=== PATIENT | female | born 1935 | race Caucasian/White ===

== ENCOUNTER → 2017-10-04 | Outpatient (CLI) | payer MEDICARE, OTHER ==
--- NOTE | 2017-10-04 13:42 | CT ---
EXAMINATION TYPE: CT brain wo con DATE OF EXAM: 10/04/2017 COMPARISON: NONE INDICATION: Subdural hematoma, abnormal gait DLP: 1046 mGycm, Automated exposure control for dose reduction was used. CONTRAST: None CT of the brain is performed utilizing 3 mm thick sections through the posterior fossa and 3 mm thick sections through the remaining calvarium. Study is performed within 24 hours of arrival to the hosp ital. No abnormal hyperdensity is present to suggest an acute intracranial hemorrhage. No mass lesion is evident. No acute infarcts are evident. There are patchy areas of hypodensity in the periventricular white mat ter. Findings can be compatible with chronic appearing white matter ischemic type changes. Ventricles and sulci are prominent for the patient age. There is a retention cyst within the left maxillary sinus. Remaining paranasal sinuses and mastoid ai r cells are clear. IMPRESSIONS: 1. Atrophy with patchy periventricular white matter ischemic type changes.
== END | disposition home or self-care (01) ==
LOC: RADCTMAIN 12:30
PROVIDERS: ATTEND Internal Medicine Critical Care Medicine
DX: G31.9 Degenerative disease of nervous system, unspecified (principal); I67.82 Cerebral ischemia; R90.89 Other abnormal findings on diagnostic imaging of central nervous system
CPT/HCPCS: 70450; 99214

== ENCOUNTER 2018-10-02 10:49 | Emergency (ER) | payer MEDICARE, OTHER ==
[2018-10-02 10:59] VITALS: TEMP 96.9
[2018-10-02] MEDS ORDERED: SODIUM CHLORIDE 0.9% 500 ML 500 ML IV STA (11:21)
--- NOTE | 2018-10-02 11:44 | ED ---
General Adult HPI - General Chief complaint: Syncope Stated complaint: Syncope Time Seen by Provider: 10/02/18 11:09 Source: patient, family, EMS, RN notes reviewed, old records reviewed Mode of arrival: EMS Limitations: no limitations - History of Present Illness Initial comments: 82 yo-year-old female presenting with an episode of unresponsiveness. No seizure-like activity.. At the time my evaluation patient has no complaints, denies headache, denies nausea vomiting or diarrhea, denies fever, denies chest pain. Denies focal weakness or numbness. She states she feels normal. Her daughter who was present at the time of this episode states she was standing at the kitchen counter, became unresponsive and began to collapse. She did not fall, there was no injury reported. Patient's symptoms improved with sitting in the chair. By time EMS arrived she was responsive and talking. Stable vital signs during transport by EMS. Patient's states she had episodes similar to this in the past. - Related Data Home Medications Medication Instructions Recorded Confirmed Donepezil [Aricept] 10 mg PO HS 06/20/14 10/02/18 Hydrochlorothiazide [Hydrodiuril] 25 mg PO DAILY 06/20/14 10/02/18 Levothyroxine Sodium [Synthroid] 125 mcg PO DAILY 06/20/14 10/02/18 Lisinopril [Prinivil] 10 mg PO DAILY 06/20/14 10/02/18 Warfarin [Coumadin] 2.5 mg PO MOTUWETHFRSA 06/20/14 10/02/18 Warfarin [Coumadin] 5 mg PO RAMIREZ 06/20/14 10/02/18 Diltiazem HCl [Diltiazem ER] 240 mg PO DAILY 09/30/17 10/02/18 Fluticasone/Vilanterol [Breo 1 inhalation PO RT-DAILY 09/30/17 10/02/18 Ellipta 100-25 Mcg Inhaler] Multivitamins, Thera [Multivitamin 1 tab PO DAILY 09/30/17 10/02/18 (formulary)] Simvastatin [Zocor] 40 mg PO HS 09/30/17 10/02/18 Memantine [Namenda] 10 mg PO BID 10/02/18 10/02/18 Allergies Allergy/AdvReac Type Severity Reaction Status Date / Time atropine sulfate Allergy Rash/Hives Verified 10/02/18 11:37 [From Lomotil] diphenoxylate HCl Allergy Rash/Hives Verified 10/02/18 11:37 [From Lomotil] hydroxychloroquine sulfate Allergy Rash/Hives Verified 10/02/18 11:37 [From Plaquenil] Review of Systems ROS Statement: Those systems with pertinent positive or pertinent negative responses have been documented in the HPI. ROS Other: All systems not noted in ROS Statement are negative. Past Medical History Past Medical History: Asthma, Cancer, GERD/Reflux, Hypertension, Thyroid Disorder History of Any Multi-Drug Resistant Organisms: None Reported Past Surgical History: Breast Surgery Additional Past Surgical History / Comment(s): Breast CA,hemorrhoid surgery Past Anesthesia/Blood Transfusion Reactions: No Reported Reaction Smoking Status: Former smoker Past Alcohol Use History: None Reported Past Drug Use History: None Reported General Exam Limitations: no limitations General appearance: alert, in no apparent distress Head exam: Present: atraumatic, normocephalic Eye exam: Present: PERRL, EOMI, other (Left ptosis) Neck exam: Present: normal inspection. Absent: tenderness, meningismus Respiratory exam: Present: normal lung sounds bilaterally. Absent: respiratory distress, wheezes Cardiovascular Exam: Present: regular rate, normal rhythm Extremities exam: Present: normal inspection, normal capillary refill. Absent: pedal edema Neurological exam: Present: alert, oriented X3, CN II-XII intact. Absent: motor sensory deficit Psychiatric exam: Present: normal affect, normal mood Skin exam: Present: warm, dry, intact. Absent: cyanosis, diaphoretic Course Vital Signs 10/02/18 10:56 Temperature 96.9 F L Pulse Rate 76 Respiratory 16 Rate Blood Pressure 109/60 O2 Sat by Pulse 99 Oximetry EKG Findings - EKG Comments: EKG Findings:: EKG: Sinus rhythm with first-degree A-V block, rate is 70, LA interval 2:30, QRS duration 72, QTC 427, no ST segment changes. Medical Decision Making - Medical Decision Making 82-year-old female presenting with syncopal episode. Patient has had episodes similar to this in the past. Patient has no complaints time my evaluation. Patient has normal CBC, normal CMP with the exception of elevated glucose 224, troponin negative. Head CT is obtained, this is negative for intracranial hemorrhage or mass effect. Chest x-ray negative for focal pneumonia or acute findings. Urinalysis does reveal 3+ glucose, patient has no known diagnosis of diabetes. I would prefer the patient be admitted for telemetry and close observation. Patient is eager for discharge. She will follow-up closely with her primary care physician. Return with worsening or changing symptoms. Please continue oral hydration at home. She is given basic instructions on diabetic diet. - Lab Data Result diagrams: 10/02/18 11:45 10/02/18 11:45 Lab Results 10/02/18 10/02/18 10/02/18 Range/Units 11:45 11:45 11:45 WBC 7.8 (3.8-10.6) k/uL RBC 4.39 (3.80-5.40) m/uL Hgb 14.2 (11.4-16.0) gm/dL Hct 42.5 (34.0-46.0) % MCV 96.8 (80.0-100.0) fL MCH 32.5 (25.0-35.0) pg MCHC 33.5 (31.0-37.0) g/dL RDW 13.3 (11.5-15.5) % Plt Count 226 (150-450) k/uL Neutrophils % 73 % Lymphocytes % 19 % Monocytes % 5 % Eosinophils % 2 % Basophils % 1 % Neutrophils # 5.6 (1.3-7.7) k/uL Lymphocytes # 1.5 (1.0-4.8) k/uL Monocytes # 0.4 (0-1.0) k/uL Eosinophils # 0.1 (0-0.7) k/uL Basophils # 0.1 (0-0.2) k/uL PT (9.0-12.0) sec INR (<1.2) APTT (22.0-30.0) sec Sodium 138 (137-145) mmol/L Potassium 4.5 (3.5-5.1) mmol/L Chloride 103 (98-107) mmol/L Carbon Dioxide 20 L (22-30) mmol/L Anion Gap 15 mmol/L BUN 18 H (7-17) mg/dL Creatinine 0.95 (0.52-1.04) mg/dL Est GFR (CKD-EPI)AfAm 65 (>60 ml/min/1.73 sqM) Est GFR (CKD-EPI)NonAf 56 (>60 ml/min/1.73 sqM) Glucose 224 H (74-99) mg/dL Calcium 9.9 (8.4-10.2) mg/dL Total Bilirubin 0.5 (0.2-1.3) mg/dL AST 38 H (14-36) U/L ALT 42 (9-52) U/L Alkaline Phosphatase 94 (38-126) U/L Total Creatine Kinase 52 (30-135) U/L CK-MB (CK-2) 0.4 (0.0-2.4) ng/mL CK-MB (CK-2) Rel Index 0.8 Troponin I <0.012 (0.000-0.034) ng/mL Total Protein 7.0 (6.3-8.2) g/dL Albumin 4.3 (3.5-5.0) g/dL Urine Color Urine Appearance (Clear) Urine pH (5.0-8.0) Ur Specific Warriors Mark (1.001-1.035) Urine Protein (Negative) Urine Glucose (UA) (Negative) Urine Ketones (Negative) Urine Blood (Negative) Urine Nitrite (Negative) Urine Bilirubin (Negative) Urine Urobilinogen (<2.0) mg/dL Ur Leukocyte Esterase (Negative) 10/02/18 10/02/18 Range/Units 11:45 14:21 WBC (3.8-10.6) k/uL RBC (3.80-5.40) m/uL Hgb (11.4-16.0) gm/dL Hct (34.0-46.0) % MCV (80.0-100.0) fL MCH (25.0-35.0) pg MCHC (31.0-37.0) g/dL RDW (11.5-15.5) % Plt Count (150-450) k/uL Neutrophils % % Lymphocytes % % Monocytes % % Eosinophils % % Basophils % % Neutrophils # (1.3-7.7) k/uL Lymphocytes # (1.0-4.8) k/uL Monocytes # (0-1.0) k/uL Eosinophils # (0-0.7) k/uL Basophils # (0-0.2) k/uL PT 21.1 H (9.0-12.0) sec INR 2.2 H (<1.2) APTT 28.9 (22.0-30.0) sec Sodium (137-145) mmol/L Potassium (3.5-5.1) mmol/L Chloride (98-107) mmol/L Carbon Dioxide (22-30) mmol/L Anion Gap mmol/L BUN (7-17) mg/dL Creatinine (0.52-1.04) mg/dL Est GFR (CKD-EPI)AfAm (>60 ml/min/1.73 sqM) Est GFR (CKD-EPI)NonAf (>60 ml/min/1.73 sqM) Glucose (74-99) mg/dL Calcium (8.4-10.2) mg/dL Total Bilirubin (0.2-1.3) mg/dL AST (14-36) U/L ALT (9-52) U/L Alkaline Phosphatase (38-126) U/L Total Creatine Kinase (30-135) U/L CK-MB (CK-2) (0.0-2.4) ng/mL CK-MB (CK-2) Rel Index Troponin I (0.000-0.034) ng/mL Total Protein (6.3-8.2) g/dL Albumin (3.5-5.0) g/dL Urine Color Yellow Urine Appearance Clear (Clear) Urine pH 7.0 (5.0-8.0) Ur Specific Warriors Mark 1.015 (1.001-1.035) Urine Protein Negative (Negative) Urine Glucose (UA) 3+ H (Negative) Urine Ketones Negative (Negative) Urine Blood Negative (Negative) Urine Nitrite Negative (Negative) Urine Bilirubin Negative (Negative) Urine Urobilinogen <2.0 (<2.0) mg/dL Ur Leukocyte Esterase Negative (Negative) Disposition Clinical Impression: Syncope, Diabetes mellitus Disposition: HOME SELF-CARE Condition: Good Instructions: Type 2 Diabetes in Adults: New Diagnosis (DC), Syncope (ED) Is patient prescribed a controlled substance at d/c from ED?: No Referrals: None,Stated [REFERRING] - 1-2 days Marcellus Joel DO [Primary Care Provider] - 1-2 days Time of Disposition: 14:56
[2018-10-02 12:01] LABS: Basophils # (A) 0.1 k/uL (0-0.2); Basophils % (A) 1 %; Eosinophils # (A) 0.1 k/uL (0-0.7); Eosinophils % (A) 2 %; HCT 42.5 % (34.0-46.0); HGB 14.2 gm/dL (11.4-16.0); Lymphocytes # (A) 1.5 k/uL (1.0-4.8); Lymphocytes % (A) 19 %; MCH 32.5 pg (25.0-35.0); MCHC 33.5 g/dL (31.0-37.0); MCV 96.8 fL (80.0-100.0); Monocytes # (A) 0.4 k/uL (0-1.0); Monocytes % (A) 5 %; Neutrophils # (A) 5.6 k/uL (1.3-7.7); Neutrophils % (A) 73 %; Platelet Count 226 k/uL (150-450); RBC 4.39 m/uL (3.80-5.40); RDW 13.3 % (11.5-15.5); WBC 7.8 k/uL (3.8-10.6)
[2018-10-02 12:11] LABS: INR 2.2 (<1.2); Partial Thromboplastin Time 28.9 sec (22.0-30.0); Prothrombin Time 21.1 sec (9.0-12.0)
[2018-10-02 12:20] LABS: Creatine Kinase 52 U/L (30-135)
--- NOTE | 2018-10-02 12:26 | CT ---
EXAMINATION TYPE: CT brain wo con DATE OF EXAM: 10/02/2018 COMPARISON: 10/04/2017 HISTORY: 82-year-old female with syncope TECHNIQUE: Examination was done in axial plane without intravenous contrast. Coronal and sagittal r econstructions performed. CT DLP: 1134.4 mGycm Automated exposure control for dose reduction was used. FINDINGS: There is no evidence of acute intracranial hemorrhage, acute ischemic changes, mass, mass-effect, or extra-axial fluid collection. There is no effacement of cerebral sulci or basal subarachnoid cister ns. There is no hydrocephalus. There is no midline shift. Weeks-white matter distinction is preserv ed. Moderate frontotemporal atrophy is redemonstrated with moderate confluent white matter hypodensities in both cerebral hemispheres. Atherosclerotic calcifications within the bilateral carotid siphons. Visualized paranasal sinuses and mastoid air cells appear clear. Orbits and globes are intact. IMPRESSION: Similar moderate frontotemporal cortical atrophy and moderate confluent changes of chronic small vess el ischemic disease. No acute intracranial abnormality seen.
[2018-10-02 12:33] LABS: Creatine Kinase MB 0.4 ng/mL (0.0-2.4); Troponin I <0.012 ng/mL (0.000-0.034)
[2018-10-02 12:44] LABS: Albumin 4.3 g/dL (3.5-5.0); Calcium 9.9 mg/dL (8.4-10.2); Potassium 4.5 mmol/L (3.5-5.1); Total Bilirubin 0.5 mg/dL (0.2-1.3)
--- NOTE | 2018-10-02 13:03 | XR ---
EXAMINATION TYPE: XR chest 2V DATE OF EXAM: 10/02/2018 COMPARISON: Chest x-ray September 30, 2017 HISTORY: History of asthma and hypertension with syncope and weakness today. TECHNIQUE: Frontal and lateral views of the chest are obtained. FINDINGS: There is chronic white matter change without suspicious focal air space opacity, pleural e ffusion, or pneumothorax seen. The cardiac silhouette size is stable and within normal limits with a therosclerotic change in aortic knob. The osseous structures remain demineralized. Surgical changes to left breast from lumpectomy and left axillary dissection with diminished size of left breast rela tive to the right breast are all redemonstrated. IMPRESSION: Chronic changes without acute pulmonary process.
[2018-10-02] MEDS ORDERED: SODIUM CHLORIDE 0.9% 500 ML 500 ML IV ONE (14:14)
[2018-10-02 14:36] LABS: Appearance,Urine Clear (Clear); Bilirubin,Urine Negative (Negative); Blood,Urine Negative (Negative); Color,Urine Yellow; Glucose,Urine (UA) 3+ (Negative); Ketones,Urine Negative (Negative); Leukocyte Esterase,Urine Negative (Negative); Nitrite,Urine Negative (Negative); Protein,Urine Negative (Negative); Specific Gravity,Urine 1.015 (1.001-1.035); Urobilinogen,Urine <2.0 mg/dL (<2.0)
[2018-10-02 15:19] VITALS: BP 117/61; PULSE 68; RESP 18
== END 2018-10-02 15:16 | disposition home or self-care (01) ==
LOC: EC 10:49
DX: E11.65 Type 2 diabetes mellitus with hyperglycemia (principal); R55 Syncope and collapse; J45.909 Unspecified asthma, uncomplicated; I10 Essential (primary) hypertension; E07.9 Disorder of thyroid, unspecified; Z87.891 Personal history of nicotine dependence; Z85.3 Personal history of malignant neoplasm of breast; Z79.01 Long term (current) use of anticoagulants; Z79.51 Long term (current) use of inhaled steroids; Z79.899 Other long term (current) drug therapy; Z88.8 Allergy status to other drugs, medicaments and biological substances; Z53.8 Procedure and treatment not carried out for other reasons
CPT/HCPCS: 36415; 70450; 71046; 80053; 81003; 82550; 82553; 84484; 85025; 85610; 85730; 93005; 96360; 99285

== ENCOUNTER → 2018-10-05 | Outpatient (CLI) | payer MEDICARE, OTHER ==
[2018-10-05 17:24] LABS: Hemoglobin A1C 6.9 % (4.0-6.0)
== END | disposition home or self-care (01) ==
LOC: LABWHC1 08:33
PROVIDERS: ATTEND Nurse Practitioner Adult Health
DX: R73.9 Hyperglycemia, unspecified (principal)
CPT/HCPCS: 36415; 82947; 83036

== ENCOUNTER 2019-02-10 09:40 | Emergency (ER) | payer MEDICARE, OTHER ==
[2019-02-10 09:58] VITALS: PULSE 78
--- NOTE | 2019-02-10 10:13 | ED ---
Abdominal Pain HPI - General Chief Complaint: Abdominal Pain Stated Complaint: Constipated Time Seen by Provider: 02/10/19 10:00 Source: patient, family, RN notes reviewed, old records reviewed Mode of arrival: ambulatory Limitations: altered mental status - History of Present Illness Initial Comments: Patient is an 83-year-old female who presents emergency department today with complaints of constipation. Patient had rectal prolapse surgery by Dr. Tristin Rivera at [facility] on January 18. She has not had a bowel movement in 16 days. Visiting nurse came to the house yesterday and administered Fleet enemas but there is a reported significant fecal impaction that was not able to be removed. Patient has had no vomiting. She reports that she is able to urinate without difficulty. She denies any falls. - Related Data Home Medications Medication Instructions Recorded Confirmed Donepezil [Aricept] 10 mg PO HS 06/20/14 10/02/18 Hydrochlorothiazide [Hydrodiuril] 25 mg PO DAILY 06/20/14 10/02/18 Levothyroxine Sodium [Synthroid] 125 mcg PO DAILY 06/20/14 10/02/18 Lisinopril [Prinivil] 10 mg PO DAILY 06/20/14 10/02/18 Warfarin [Coumadin] 2.5 mg PO MOTUWETHFRSA 06/20/14 10/02/18 Warfarin [Coumadin] 5 mg PO RAMIREZ 06/20/14 10/02/18 Diltiazem HCl [Diltiazem ER] 240 mg PO DAILY 09/30/17 10/02/18 Fluticasone/Vilanterol [Breo 1 inhalation PO RT-DAILY 09/30/17 10/02/18 Ellipta 100-25 Mcg Inhaler] Multivitamins, Thera [Multivitamin 1 tab PO DAILY 09/30/17 10/02/18 (formulary)] Simvastatin [Zocor] 40 mg PO HS 09/30/17 10/02/18 Memantine [Namenda] 10 mg PO BID 10/02/18 10/02/18 Allergies Allergy/AdvReac Type Severity Reaction Status Date / Time atropine sulfate Allergy Rash/Hives Verified 10/02/18 11:37 [From Lomotil] diphenoxylate HCl Allergy Rash/Hives Verified 10/02/18 11:37 [From Lomotil] hydroxychloroquine sulfate Allergy Rash/Hives Verified 10/02/18 11:37 [From Plaquenil] Review of Systems ROS Statement: Those systems with pertinent positive or pertinent negative responses have been documented in the HPI. ROS Other: All systems not noted in ROS Statement are negative. Past Medical History Past Medical History: Asthma, Cancer, GERD/Reflux, Hypertension, Thyroid Disorder History of Any Multi-Drug Resistant Organisms: None Reported Past Surgical History: Bowel Resection, Breast Surgery Additional Past Surgical History / Comment(s): Breast CA,hemorrhoid surgery Past Anesthesia/Blood Transfusion Reactions: No Reported Reaction Smoking Status: Former smoker Past Alcohol Use History: None Reported Past Drug Use History: None Reported General Exam - General Exam Comments Initial Comments: 83-year-old female. Alert and oriented 3. No significant distress. General: Well appearing, well nourished, in no distress. Oriented x 3, normal mood and affect . Ambulating without difficulty. Skin: Good turgor, no rash, unusual bruising or prominent lesions Hair: Normal texture and distribution. HEENT: Head: Normocephalic, atraumatic, no visible or palpable masses, depressions, or scaring. Eyes: Visual acuity intact, conjunctiva clear, sclera non-icteric, EOM intact, PERRL. Ears: EACs clear, TMs translucent & cone of light visualized. hearing intact. Nose: No external lesions, mucosa non-inflamed, septum and turbinates normal Mouth: Mucous membranes moist, no mucosal lesions. Teeth/Gums: No obvious caries or periodontal disease. No gingival inflammation or significant resorption. Pharynx: Mucosa non-inflamed, no tonsillar hypertrophy or exudate Neck: Supple, without lesions, bruits, or adenopathy, thyroid non-enlarged and non-tender Heart: No cardiomegaly or thrills; regular rate and rhythm, no murmur or gallop Lungs: Clear to auscultation and percussion Abdomen: Bowel sounds normal, distended. Back: Spine normal without deformity or tenderness, no CVA tenderness Rectal: Normal sphincter tone, small sphincter noted. Extremities: No amputations or deformities, cyanosis, edema or varicosities, peripheral pulses intact Musculoskeletal: Normal gait and station. No misalignment, asymmetry, crepitation, defects, tenderness, masses, effusions, decreased range of motion, instability, atrophy or abnormal strength or tone in the head, neck, spine, ribs, pelvis or extremities. Neurologic: CN 2-12 normal. Sensation to pain, touch, and proprioception normal. DTRs normal in upper and lower extremities. No pathologic reflexes. Psychiatric: Oriented X3, intact recent and remote memory, judgment and insight, normal mood and affect. Limitations: altered mental status Course Vital Signs 02/10/19 09:55 Temperature 98.2 F Pulse Rate 78 Respiratory 22 Rate Blood Pressure 122/60 O2 Sat by Pulse 98 Oximetry Medical Decision Making - Medical Decision Making Patient is an 83-year-old female who presents department 17 days after rectopexy surgery. Patient has not had a bowel movement time. KUB showed significant stool burn. She has a significant fecal impaction noted on rectal exam. She does have rectal tone. Patient was given lactulose, milk and molasses enema. She was able to produce a very large bowel movement. She feels much better afterwards. Patient advised to follow-up with her surgeon as well as continue to use MiraLAX daily. Discussed if she ever grows greater than 3 days without a bowel movement she would need to resort to magnesium citrate or other methods to promote bowel movements. Patient's family understands treatment plan will comply. Disposition Clinical Impression: Fecal impaction Disposition: HOME SELF-CARE Condition: Good Instructions (If sedation given, give patient instructions): Fecal Impaction (ED) Additional Instructions: Patient is a continued taking MiraLAX and stool softeners daily. Patient should have follow-up with her surgeon within the week. Return to the emergency department if any alarming signs or symptoms occur. Is patient prescribed a controlled substance at d/c from ED?: No Referrals: Marcellus Joel DO [Primary Care Provider] - 1-2 days Time of Disposition: 13:28
[2019-02-10] MEDS ORDERED: DOCUSATE 283 MG/5 ML ENEMA RECTAL PRN (10:14)
--- NOTE | 2019-02-10 10:28 | XR ---
EXAMINATION TYPE: XR KUB , 2 VIEWS DATE OF EXAM ORDERED: 02/10/2019 HISTORY: Pain. COMPARISON: None. FINDINGS: There has been previous left breast surgery. Lung bases are clear. The abdominal gas pattern is within normal limits. I do not see evidence of obstruction or free air. No unusual calcifications are seen. IMPRESSION: NO ACUTE INTRA-ABDOMINAL ABNORMALITY.
[2019-02-10] MEDS ORDERED: LACTULOSE 20 GM/30 ML CUP PO ONE (10:54)
[2019-02-10 14:01] VITALS: BP 142/87; RESP 18; TEMP 98.7
== END 2019-02-10 14:00 | disposition home or self-care (01) ==
LOC: EC 09:40
DX: K56.41 Fecal impaction (principal); R41.82 Altered mental status, unspecified; J45.909 Unspecified asthma, uncomplicated; I10 Essential (primary) hypertension; E07.9 Disorder of thyroid, unspecified; Z87.891 Personal history of nicotine dependence; Z88.8 Allergy status to other drugs, medicaments and biological substances; Z79.01 Long term (current) use of anticoagulants; Z79.51 Long term (current) use of inhaled steroids; Z79.890 Hormone replacement therapy; Z79.899 Other long term (current) drug therapy; Z85.3 Personal history of malignant neoplasm of breast; Z98.890 Other specified postprocedural states; Z90.49 Acquired absence of other specified parts of digestive tract; Z83.79 Family history of other diseases of the digestive system
CPT/HCPCS: 74018; 99284

== ENCOUNTER → 2019-02-16 | Outpatient (CLI) | payer MEDICARE, OTHER ==
--- NOTE | 2019-02-16 16:17 | CT ---
EXAMINATION TYPE: CT brain w con DATE OF EXAM: 02/16/2019 COMPARISON: CT brain October 02, 2018 HISTORY: hx dementia CT DLP: 1305 mGycm Automated exposure control for dose reduction was used. CONTRAST: CT scan of the head is performed with IV Contrast, patient injected with 80 mL of Isovue 300. FINDINGS: There is no abnormal enhancing mass or midline shift identified. Ventricle and sulcal prominence is r edemonstrated. Marked low attenuation in deep and periventricular white matter is again seen. Depende nt fluid left maxillary sinus is now present. Remainder paranasal sinuses are clear. The globes are i ntact bilaterally. IMPRESSION: Persistent moderate diffuse cerebral atrophy and moderate to severe chronic small vessel ischemic change. No suspicious enhancement is noted. New acute left maxillary sinus disease is presen t, correlate clinically.
== END | disposition home or self-care (01) ==
LOC: RADCTMAIN 13:56
PROVIDERS: ATTEND Internal Medicine Critical Care Medicine
DX: G31.9 Degenerative disease of nervous system, unspecified (principal); I67.82 Cerebral ischemia; F02.80 Dementia in other diseases classified elsewhere, unspecified severity, without behavioral disturbance, psychotic disturbance, mood disturbance, and anxiety
CPT/HCPCS: 82565; 84520; 70460; 36415; Q9967

== ENCOUNTER 2019-05-10 09:51 | Emergency (ER) | payer MEDICARE, OTHER ==
[2019-05-10 10:01] VITALS: RESP 18
[2019-05-10] MEDS ORDERED: ASPIRIN 81 MG PO STA (10:19)
--- NOTE | 2019-05-10 10:22 | ED ---
General Adult HPI - General Chief complaint: Neuro Symptoms/Deficit Stated complaint: Poss stroke Time Seen by Provider: 05/10/19 09:53 Source: patient Mode of arrival: ambulatory Limitations: no limitations - History of Present Illness Initial comments: Dictation was produced using [employer] dictation software. please excuse any grammatical, word or spelling errors. Chief Complaint: 83-year-old female presents with transient episode of right facial droop. History of Present Illness: Patient is 83-year-old female past medical history of dementia, hypertension thyroid disease and CVAs in the past. She presents today with transient episode of right facial droop. Patient was evaluated this morning by one of her family members. They noted that she was not moving her right lower face. The report that she also had some swelling to her right cheek. She went on to have several minutes of right facial droop with drooling. EMS was called family was concerned that patient was having another stroke. Patient has a history of CVAs and TIAs. Patient is unreliable historian at this time due to chronic dementia. Family reports the patient is behaving at baseline currently. Reports that she feels fine. The ROS documented in this emergency department record has been reviewed and confirmed by me. Those systems with pertinent positive or negative responses have been documented in the HPI. All other systems are other negative and/or noncontributory. PHYSICAL EXAM: General Impression: Alert and oriented x2/4, not in acute distress HEENT: Normocephalic atraumatic, extra-ocular movements intact, pupils equal and reactive to light bilaterally, mucous membranes moist. Cardiovascular: Heart regular rate and rhythm, S1&S2 audible, no murmurs, rubs or gallops Chest: Lungs clear to auscultation bilaterally, no rhonchi, no wheeze, no rales Abdomen: Bowel sounds present, abdomen soft, non-tender, non-distended, no organomegaly Musculoskeletal: Pulses present and equal in all extremities, no peripheral edema Motor: no focal deficits noted Neurological: CN II-XII grossly intact, no focal motor or sensory deficits noted Skin: Intact with no visualized rashes Psych: Normal affect and mood ED course: She is a 83-year-old female she presents today with transient episode of right facial droop. Clinical presentation is suspicious for transient ischemic attack. No significant neurologic deficits noted at this time. Patient is a delta NIH of 0. On arrival are within acceptable limits. Laboratory evaluation obtained. CBC, coag panel, metabolic panel is unremarkable. Cardiac enzymes negative. CT of the brain and CT angios found to be nonacute. Chest x-ray is unremarkable. Patient reevaluated at bedside after several hours of ER observation. She does not have any neuro deficits noted. Family is convinced that she does have some swelling to the face however she is not having any facial weakness. Patient has good neuro function to her extremities. Clinical presentation consistent with transient ischemic attack. Recommended to patient and family to have patient admitted for TIA workup. After long discussion with family and patient they requested the patient be discharged. They understand that this is against my recommendation. They are however willing to follow up with primary care physician. Return parameters discussed further told to bring patient back should she experience any new or recurrent neurologic symptoms. They understand that she should come back to the emergency Department immediately that she may qualify for thrombolytic therapy. Patient is given aspirin. They're told to follow-up with primary care physician tomorrow. He understands the risk of taking her home including recurrent of strokelike symptoms and pertinent neurologic disability and possibly even mortality. Decision was made along with family with son being decision-maker. is essentially the next of kin is hospitalized at the moment and and decision was made by son. EKG interpretation: Ventricular rate 64, normal sinus rhythm,. Interval 196, QS 70, QTc 416. No [place] prolongation, no QTC prolongation, no ST or T-wave changes noted. EKG compared to 10/02/2018 showing no changes. Overall, this EKG is unremarkable - Related Data Home Medications Medication Instructions Recorded Confirmed Hydrochlorothiazide [Hydrodiuril] 25 mg PO DAILY 06/20/14 05/10/19 Lisinopril [Prinivil] 10 mg PO DAILY 06/20/14 05/10/19 Warfarin [Coumadin] 2.5 mg PO MOTUWETHFRSA 06/20/14 05/10/19 Warfarin [Coumadin] 5 mg PO RAMIREZ 06/20/14 05/10/19 Diltiazem HCl [Diltiazem ER] 240 mg PO DAILY 09/30/17 05/10/19 Fluticasone/Vilanterol [Breo 1 puff INHALATION RT-DAILY 09/30/17 05/10/19 Ellipta 100-25 Mcg Inhaler] Multivitamins, Thera [Multivitamin 1 tab PO DAILY 09/30/17 05/10/19 (formulary)] Simvastatin [Zocor] 40 mg PO HS 09/30/17 05/10/19 Calcium Polycarbophil [Fibercon] 625 mg PO DAILY 05/10/19 05/10/19 Levothyroxine Sodium [Synthroid] 150 mcg PO DAILY 05/10/19 05/10/19 Allergies Allergy/AdvReac Type Severity Reaction Status Date / Time atropine sulfate Allergy Rash/Hives Verified 05/10/19 10:21 [From Lomotil] diphenoxylate HCl Allergy Rash/Hives Verified 05/10/19 10:21 [From Lomotil] hydroxychloroquine sulfate Allergy Rash/Hives Verified 05/10/19 10:21 [From Plaquenil] Review of Systems ROS Statement: Those systems with pertinent positive or pertinent negative responses have been documented in the HPI. ROS Other: All systems not noted in ROS Statement are negative. Past Medical History Past Medical History: Asthma, Cancer, GERD/Reflux, Hypertension, Thyroid Disorder History of Any Multi-Drug Resistant Organisms: None Reported Past Surgical History: Bowel Resection, Breast Surgery Additional Past Surgical History / Comment(s): Breast CA,hemorrhoid surgery Past Anesthesia/Blood Transfusion Reactions: No Reported Reaction Smoking Status: Former smoker Past Alcohol Use History: None Reported Past Drug Use History: None Reported General Exam Limitations: no limitations Course Vital Signs 05/10/19 05/10/19 09:57 10:10 Temperature 97.9 F 97.9 F Pulse Rate 74 77 Respiratory 18 18 Rate Blood Pressure 146/67 148/60 O2 Sat by Pulse 100 99 Oximetry Medical Decision Making - Lab Data Result diagrams: 05/10/19 10:09 05/10/19 10:09 Lab Results 05/10/19 05/10/19 05/10/19 Range/Units 10:09 10:09 10:09 WBC 9.0 (3.8-10.6) k/uL RBC 4.32 (3.80-5.40) m/uL Hgb 13.6 (11.4-16.0) gm/dL Hct 41.2 (34.0-46.0) % MCV 95.3 (80.0-100.0) fL MCH 31.6 (25.0-35.0) pg MCHC 33.1 (31.0-37.0) g/dL RDW 13.1 (11.5-15.5) % Plt Count 229 (150-450) k/uL Neutrophils % 69 % Lymphocytes % 23 % Monocytes % 4 % Eosinophils % 2 % Basophils % 1 % Neutrophils # 6.3 (1.3-7.7) k/uL Lymphocytes # 2.1 (1.0-4.8) k/uL Monocytes # 0.4 (0-1.0) k/uL Eosinophils # 0.1 (0-0.7) k/uL Basophils # 0.1 (0-0.2) k/uL PT 15.8 H (9.0-12.0) sec INR 1.6 H (<1.2) APTT 29.0 (22.0-30.0) sec Sodium 140 (137-145) mmol/L Potassium 4.3 (3.5-5.1) mmol/L Chloride 106 (98-107) mmol/L Carbon Dioxide 26 (22-30) mmol/L Anion Gap 8 mmol/L BUN 19 H (7-17) mg/dL Creatinine 0.82 (0.52-1.04) mg/dL Est GFR (CKD-EPI)AfAm 77 (>60 ml/min/1.73 sqM) Est GFR (CKD-EPI)NonAf 66 (>60 ml/min/1.73 sqM) Glucose 119 H (74-99) mg/dL Calcium 9.6 (8.4-10.2) mg/dL Total Bilirubin 0.7 (0.2-1.3) mg/dL AST 23 (14-36) U/L ALT 21 (9-52) U/L Alkaline Phosphatase 95 (38-126) U/L Troponin I (0.000-0.034) ng/mL Total Protein 6.9 (6.3-8.2) g/dL Albumin 4.1 (3.5-5.0) g/dL 05/10/19 Range/Units 10:09 WBC (3.8-10.6) k/uL RBC (3.80-5.40) m/uL Hgb (11.4-16.0) gm/dL Hct (34.0-46.0) % MCV (80.0-100.0) fL MCH (25.0-35.0) pg MCHC (31.0-37.0) g/dL RDW (11.5-15.5) % Plt Count (150-450) k/uL Neutrophils % % Lymphocytes % % Monocytes % % Eosinophils % % Basophils % % Neutrophils # (1.3-7.7) k/uL Lymphocytes # (1.0-4.8) k/uL Monocytes # (0-1.0) k/uL Eosinophils # (0-0.7) k/uL Basophils # (0-0.2) k/uL PT (9.0-12.0) sec INR (<1.2) APTT (22.0-30.0) sec Sodium (137-145) mmol/L Potassium (3.5-5.1) mmol/L Chloride (98-107) mmol/L Carbon Dioxide (22-30) mmol/L Anion Gap mmol/L BUN (7-17) mg/dL Creatinine (0.52-1.04) mg/dL Est GFR (CKD-EPI)AfAm (>60 ml/min/1.73 sqM) Est GFR (CKD-EPI)NonAf (>60 ml/min/1.73 sqM) Glucose (74-99) mg/dL Calcium (8.4-10.2) mg/dL Total Bilirubin (0.2-1.3) mg/dL AST (14-36) U/L ALT (9-52) U/L Alkaline Phosphatase (38-126) U/L Troponin I <0.012 (0.000-0.034) ng/mL Total Protein (6.3-8.2) g/dL Albumin (3.5-5.0) g/dL Disposition Clinical Impression: Transient cerebral ischemia Disposition: HOME SELF-CARE Condition: Fair Instructions (If sedation given, give patient instructions): Transient Ischemic Attack (ED) Is patient prescribed a controlled substance at d/c from ED?: No Referrals: Marcellus Joel DO [Primary Care Provider] - 1-2 days Time of Disposition: 13:33
[2019-05-10 10:35] LABS: Basophils # (A) 0.1 k/uL (0-0.2); Basophils % (A) 1 %; Eosinophils # (A) 0.1 k/uL (0-0.7); Eosinophils % (A) 2 %; HCT 41.2 % (34.0-46.0); HGB 13.6 gm/dL (11.4-16.0); Lymphocytes # (A) 2.1 k/uL (1.0-4.8); Lymphocytes % (A) 23 %; MCH 31.6 pg (25.0-35.0); MCHC 33.1 g/dL (31.0-37.0); MCV 95.3 fL (80.0-100.0); Mean Platelet Volume 7.5; Monocytes # (A) 0.4 k/uL (0-1.0); Monocytes % (A) 4 %; Neutrophils # (A) 6.3 k/uL (1.3-7.7); Neutrophils % (A) 69 %; Platelet Count 229 k/uL (150-450); RBC 4.32 m/uL (3.80-5.40); RDW 13.1 % (11.5-15.5)
[2019-05-10 10:41] LABS: Albumin 4.1 g/dL (3.5-5.0); Calcium 9.6 mg/dL (8.4-10.2); Potassium 4.3 mmol/L (3.5-5.1); Total Bilirubin 0.7 mg/dL (0.2-1.3); Total Protein 6.9 g/dL (6.3-8.2)
[2019-05-10 10:45] LABS: INR 1.6 (<1.2); Prothrombin Time 15.8 sec (9.0-12.0)
--- NOTE | 2019-05-10 11:07 | CT ---
EXAMINATION TYPE: CT brain wo con for TPA DATE OF EXAM: 05/10/2019 HISTORY: Possible stroke. Acute onset neuro deficit of altered mental status and aphasia CT DLP: 1507.4 mGycm. Automated Exposure Control for Dose Reduction was Utilized. TECHNIQUE: CT scan of the head is performed without contrast. COMPARISON: CT brain February 16, 2019 and older CTs FINDINGS: There is no acute intracranial hemorrhage or midline shift identified. There is diffuse v entricular and sulcal prominence consistent with diffuse age-related cerebral atrophy. There is low- attenuation in the periventricular white matter consistent with chronic small vessel ischemic change. The globes are intact and the visualized sinuses are clear. IMPRESSION: No acute intracranial hemorrhage or midline shift. There is mild to moderate diffuse ag e-related cerebral atrophy and moderate to advanced chronic small vessel ischemic change redemonstrat ed.
--- NOTE | 2019-05-10 11:55 | CT ---
EXAMINATION TYPE: CT angio head neck DATE OF EXAM: 05/10/2019 HISTORY: Possible stroke. Acute onset no deficits with aphasia and altered mental status. COMPARISON: NONE CT DLP: 1507.4 mGycm. Automated Exposure Control for Dose Reduction was Utilized. TECHNIQUE: CTA scan of the head and neck are performed without and with IV Contrast, patient injecte d with 50 ml mL of Isovue 370, axial images are obtained, coronal and sagittal reformatted images are reviewed. Three-D reconstructed images are created on an independent workstation and reviewed. FINDINGS: Carotid/Vascular Structures: Mild plaque in the aortic arch. Normal three-vessel origin from December. oderate calcified plaque in the left subclavian artery. Right common carotid artery shows normal orig in from right brachiocephalic artery. There is mild calcified plaque at right carotid bulb extending into proximal internal and external carotid arteries. No significant plaque or stenosis is otherwise present in the right common or internal carotid arteries. Patent external carotid artery is seen with out significant stenosis. There is mild calcified plaque at origin of left common carotid artery with tortuous course of commo n carotid artery. There is mild/moderate calcified plaque left carotid bulb. Patent external carotid artery is seen without significant stenosis. There is no significant stenosis in the left common or i nternal carotid arteries. There is dominant right vertebral artery. Vertebral arteries are patent to basilar junction. There is hypoplastic left P1 segment with filling of P2 segment due to patent left posterior communicating ar rosas. There is hypoplastic right posterior communicating artery. No aneurysmal change in the posterio r circulation is evident. Images of the anterior circulation show patent anterior communicating artery image 26 series 505. The re is no significant focal stenosis or aneurysmal change seen. Other: There is prominent borderline pericarinal lymph node measuring 11 x 9 mm axial image 1. Scatte red prominent but subcentimeter lymph nodes throughout the neck are present bilaterally. There is mild disc space narrowing and spurring C6-C7 level. Thyroid gland is small in size. IMPRESSION: 1. No significant stenosis in common or internal carotid arteries bilaterally. 2. No aneurysmal change at level of the [place].
--- NOTE | 2019-05-10 12:58 | XR ---
EXAMINATION TYPE: XR chest 2V DATE OF EXAM: 05/10/2019 COMPARISON: Chest x-ray 10/02/2018 and chest x-ray 10/26/2018 HISTORY: Altered mental status TECHNIQUE: Frontal and lateral views of the chest are obtained. FINDINGS: There is no focal air space opacity, pleural effusion, or pneumothorax seen. The cardiac silhouette size is within normal limits. The osseous structures are remarkable for chronic wedge co mpression deformity the lower thoracic spine. Prominent lung volume suggests possible underlying COPD . Surgical yakelin are present in left axilla. There are overlying cardiac leads. Patient is rotated. Aorta is dense. Suspect coronary artery calcifications. IMPRESSION: No acute cardiopulmonary process.
[2019-05-10 13:51] VITALS: BP 128/51; PULSE 89; TEMP 98
== END 2019-05-10 13:49 | disposition home or self-care (01) ==
LOC: EC 09:51
DX: G45.9 Transient cerebral ischemic attack, unspecified (principal); R29.700 NIHSS score 0; J45.909 Unspecified asthma, uncomplicated; I10 Essential (primary) hypertension; E07.9 Disorder of thyroid, unspecified; Z79.890 Hormone replacement therapy; Z79.01 Long term (current) use of anticoagulants; Z79.51 Long term (current) use of inhaled steroids; Z79.899 Other long term (current) drug therapy; Z88.8 Allergy status to other drugs, medicaments and biological substances; Z87.891 Personal history of nicotine dependence; Z85.3 Personal history of malignant neoplasm of breast; Z86.73 Personal history of transient ischemic attack (TIA), and cerebral infarction without residual deficits
CPT/HCPCS: 99284; 36415; 93005; 80053; 84484; 85025; 85610; 85730; 71046; 70496; 70450; 70498; Q9967

== ENCOUNTER → 2019-07-04 | Outpatient (CLI) | payer MEDICARE, OTHER ==
--- NOTE | 2019-07-05 04:49 | MR ---
EXAMINATION TYPE: MR brain wo/w con DATE OF EXAM: 07/04/2019 COMPARISON: Correlation CT 05/10/2019 HISTORY: 83-year-old female Memory problems cognitive disease, seizure disorder TECHNIQUE: Multiplanar, multisequence images of the brain and brainstem were acquired before and aft er administration of 5.5 mL IV Gadavist. Diffusion weighted imaging is performed. FINDINGS: No evidence for acute infarction, hemorrhage, mass, mass effect, midline shift, herniation, effacemen t of basal cisterns, or extra-axial fluid collection. Moderate to severe generalized supratentorial volume loss with secondary mild prominence to the ventr icular system. Major intracranial flow voids are intact. See MRA of the same day. T2/FLAIR weighted sequences show moderate to severe patchy and confluent bright white matter change p articularly in the periventricular and deep white matter regions. Additional patchy increased signal within the bilateral paramedian james. Midline structures demonstrate normal morphology. The craniocervical junction is normal. Post contrast images demonstrate no evidence of pathologic enhancement. Dural venous sinuses are pat ent. Some frothy layering fluid within the left maxillary sinus and mild mucosal thickening left ethmoid a ir cells. Globes are intact. IMPRESSION: 1. Moderate to severe generalized atrophy. Patchy and confluent bright white matter change is nonspec ific and likely relates to moderate to severe burden of chronic small vessel ischemic disease. 2. No acute intracranial abnormality seen. 3. Some frothy layering fluid in the left maxillary sinus. Correlate for acute sinusitis.
--- NOTE | 2019-07-05 05:00 | MR ---
EXAMINATION TYPE: MR angio head wo/neck wo/w con DATE OF EXAM: 07/04/2019 COMPARISON: CT 8 05/10/2019 HISTORY: 83-year-old female Memory problems cognitive disease, seizure disorder Technique: High-resolution 3-D [id number] imaging of the [place] without contrast. Addit ional 2-D and 3-D [id number] imaging of the neck vasculature followed by pre and postcontrast cor onal series utilizing 5.5 mL intravenous Gadavist gadolinium contrast. Rotational 3-D reconstruction s generated on a dedicated independent workstation. FINDINGS: HEAD: Diminutive left vertebral artery becomes hypoplastic within the V4 segment. Normal variation with persistent origin left posterior cerebral artery. Otherwise, the anterior and posterior circulations are patent without aneurysmal change. Mild atherosclerotic irregularity within the bilateral carotid siphons without significant narrowing. NECK: The right vertebral artery is dominant. The left vertebral artery origin is never well visualized and underlying stenosis is difficult to exclude. Conventional arch was a branching anatomy. The bilateral common carotid arteries are patent. There is some smooth caliber narrowing of the proximal and mid right internal carotid arteries down t o 3 mm. The upper cervical right ICA becomes uniformly patulous measuring up to 6 mm. Lesser degree of similar changes at the left ICA without significant focal narrowing. IMPRESSION: 1. Head: Nondominant left vertebral artery becomes hypoplastic at the V4 segment. 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 Otherwise, no specific abnormality at the [place]. 2. Neck: Dominant right vertebral artery. Limited visualization of the left vertebral artery origin; difficult to exclude a stenosis here. The bilateral upper cervical ICAs become patulous at 6 mm versu s the proximal and mid ICAs which measure around 3 mm. However, no hemodynamically significant focal ICA stenosis is seen.
--- NOTE | 2019-07-07 21:55 | EEG ---
ELECTROENCEPHALOGRAM REPORT PROCEDURE DATE: 07/04/2019. ELECTROENCEPHALOGRAM (EEG) REPORT: TECHNIQUE: A routine 18 channel EEG was performed with video using the 10/20 international placement system. HISTORY: Episodes of staring and then head and shoulders and arms will slump over. CURRENT MEDICATIONS: FiberCon, Synthroid, Zestril, Zocor. STUDY DURATION: 26 minutes. FINDINGS: BACKGROUND: The background activity consisted of 8-9 hertz rhythmic waveforms symmetric through both posterior quadrants. ACTIVATION: Hyperventilation: Not performed. Photic stimulation: Symmetric driving seen. Sleep: None. ABNORMALITIES: None. IMPRESSION: Normal EEG. No epileptiform activity was present. No seizures were recorded. MMODL / IJN: [id number] /
== END | disposition home or self-care (01) ==
LOC: NEUROMAIN 12:20
PROVIDERS: ATTEND Psychiatry & Neurology Neurology
DX: G40.909 Epilepsy, unspecified, not intractable, without status epilepticus (principal); R41.3 Other amnesia
CPT/HCPCS: 95816; 70544; 70549; 70553; A9585

== ENCOUNTER → 2019-08-30 | Outpatient (CLI) | payer MEDICARE, OTHER ==
[2019-08-30 14:52] LABS: Appearance,Urine Turbid (Clear); Bacteria,Urine Few /hpf; Bilirubin,Urine Negative (Negative); Blood,Urine Small (Negative); Color,Urine Yellow; Glucose,Urine (UA) Negative (Negative); Ketones,Urine Negative (Negative); Leukocyte Esterase,Urine Large (Negative); Mucus,Urine Moderate /hpf; Nitrite,Urine Positive (Negative); PH, Urine 5.5 (5.0-8.0); Protein,Urine 2+ (Negative); RBC,Urine 129 /hpf (0-5); Specific Gravity,Urine 1.017 (1.001-1.035); Squamous Epithelial Cell,Urine 5 /hpf (0-4); Urobilinogen,Urine <2.0 mg/dL (<2.0); WBC,Urine >182 /hpf (0-5)
== END | disposition home or self-care (01) ==
LOC: LABWHC1 11:26
PROVIDERS: ATTEND Internal Medicine Critical Care Medicine
DX: N39.0 Urinary tract infection, site not specified (principal)
CPT/HCPCS: 81001; 87086

== ENCOUNTER → 2020-08-26 | Outpatient (CLI) | payer MEDICARE, OTHER ==
[2020-08-26 11:59] LABS: Basophils # (A) 0.1 k/uL (0-0.2); Basophils % (A) 1 %; Eosinophils # (A) 0.5 k/uL (0-0.7); Eosinophils % (A) 7 %; HGB 14.3 gm/dL (11.4-16.0); Lymphocytes # (A) 1.8 k/uL (1.0-4.8); Lymphocytes % (A) 24 %; MCH 32.1 pg (25.0-35.0); MCHC 33.3 g/dL (31.0-37.0); MCV 96.4 fL (80.0-100.0); Mean Platelet Volume 7.7; Monocytes # (A) 0.4 k/uL (0-1.0); Monocytes % (A) 5 %; Neutrophils # (A) 4.6 k/uL (1.3-7.7); Neutrophils % (A) 62 %; Platelet Count 230 k/uL (150-450); RBC 4.46 m/uL (3.80-5.40); RDW 12.9 % (11.5-15.5); WBC 7.5 k/uL (3.8-10.6)
[2020-08-26 20:00] LABS: Hemoglobin A1C 6.6 % (4.0-6.0)
[2020-08-26 21:43] LABS: African American GFR (CKD) 59.9 (60.0-200.0); Albumin 4.4 g/dL (3.80-4.90); Albumin/Globulin Ratio 1.76 (1.60-3.17); Anion Gap 9.9 mmol/L (4.00-12.00); Calcium 9.4 mg/dL (8.7-10.3); Carbon Dioxide 22.1 mmol/L (21.6-31.8); Chol/HDL Ratio 6.78; Globulin 2.5 g/dL (1.6-3.3); Non-African American GFR(CKD) 51.7 (60.0-200.0); Potassium 4.5 mmol/L (3.5-5.5); Total Bilirubin 0.5 mg/dL (0.3-1.2); Total Protein 6.9 g/dL (6.2-8.2)
[2020-08-26 21:51] LABS: T4, Free (Free Thyroxine) 1.6 ng/dL (0.80-1.80)
== END | disposition home or self-care (01) ==
LOC: LABWHC1 10:28
PROVIDERS: ATTEND Internal Medicine Critical Care Medicine
DX: E03.9 Hypothyroidism, unspecified (principal); E11.9 Type 2 diabetes mellitus without complications; E78.5 Hyperlipidemia, unspecified; K70.9 Alcoholic liver disease, unspecified; I48.91 Unspecified atrial fibrillation; F03.90 Unspecified dementia, unspecified severity, without behavioral disturbance, psychotic disturbance, mood disturbance, and anxiety; E55.9 Vitamin D deficiency, unspecified
CPT/HCPCS: 36415; 80053; 80061; 82306; 83036; 84439; 84481; 85025

== ENCOUNTER → 2021-08-13 | Outpatient (CLI) | payer MEDICARE, OTHER ==
[2021-08-13 21:29] LABS: Basophils # (A) 0.08 X 10*3/uL (0.00-0.10); Basophils % (A) 1.3 %; Eosinophils % (A) 4.9 %; HCT 39.9 % (37.2-46.3); HGB 12.9 g/dL (12.0-15.0); Lymphocytes # (A) 1.53 X 10*3/uL (0.90-5.00); Lymphocytes % (A) 24.8 %; MCH 30.9 pg (27.0-32.0); MCHC 32.3 g/dL (32.0-37.0); MCV 95.5 fL (80.0-97.0); Mean Platelet Volume 11.9 fL (9.5-12.2); Monocytes # (A) 0.43 X 10*3/uL (0.20-1.00); Neutrophils # (A) 3.82 X 10*3/uL (1.80-7.70); Neutrophils % (A) 61.7 %; Platelet Count 271 X 10*3/uL (140-440); RBC 4.18 X 10*6/uL (4.10-5.20); RDW 13.8 % (11.5-14.5); WBC 6.18 X 10*3/uL (4.50-10.00)
[2021-08-13 23:43] LABS: African American GFR (CKD) 71.4 (60.0-200.0); Albumin 4.2 g/dL (3.8-4.9); Albumin/Globulin Ratio 1.56 (1.60-3.17); Anion Gap 22.5 mmol/L (4.00-12.00); BUN/Creat Ratio 20.47 Ratio (12.00-20.00); Blood Urea Nitrogen 17.6 mg/dL (9.0-27.0); Calcium 9.6 mg/dL (8.7-10.3); Carbon Dioxide 10.7 mmol/L (21.6-31.8); Chol/HDL Ratio 8.76 Ratio; Globulin 2.7 g/dL (1.6-3.3); HDL Cholesterol 35.6 mg/dL (40.00-60.00); LDL Cholesterol,Calculated 229.6 mg/dL (0.0-131.0); Non-African American GFR(CKD) 61.6 (60.0-200.0); Potassium 4.6 mmol/L (3.5-5.5); T4, Free (Free Thyroxine) 2.17 ng/dL (0.800-1.800); Total Bilirubin 0.5 mg/dL (0.30-1.20); Total Protein 6.8 g/dL (6.2-8.2); VLDL Calculation 46.8 mg/dL (5.00-40.00)
== END | disposition home or self-care (01) ==
LOC: LABWHC1 10:21
PROVIDERS: ATTEND Internal Medicine Critical Care Medicine
DX: C50.919 Malignant neoplasm of unspecified site of unspecified female breast (principal); I48.91 Unspecified atrial fibrillation; K76.9 Liver disease, unspecified; E78.5 Hyperlipidemia, unspecified; E03.9 Hypothyroidism, unspecified; E11.9 Type 2 diabetes mellitus without complications
CPT/HCPCS: 36415; 80053; 80061; 82306; 83036; 84439; 84481; 85025

== ENCOUNTER 2021-08-30 14:01 | Emergency (ER) | payer MEDICARE, OTHER ==
[2021-08-30 14:27] VITALS: RESP 18; TEMP 98
--- NOTE | 2021-08-30 15:28 | XR ---
EXAMINATION TYPE: XR chest 2V DATE OF EXAM: 08/30/2021 COMPARISON: Chest radiograph 05/28/2019 HISTORY: Cough and congestion. TECHNIQUE: Frontal and lateral views of the chest are obtained. FINDINGS: There is no focal air space opacity, pleural effusion, or pneumothorax seen. The cardiac silhouette size is within normal limits. The osseous structures are intact. Clips over the left nipple and chest wall. IMPRESSION: No acute cardiopulmonary process.
--- NOTE | 2021-08-30 15:48 | ED ---
"General Adult HPI - General Chief complaint: Upper Respiratory Infection Stated complaint: Body Ache,Congestion,Cough Time Seen by Provider: 08/30/21 14:57 Source: patient Mode of arrival: ambulatory Limitations: no limitations - History of Present Illness Initial comments: Dictation was produced using [employer] dictation software. please excuse any g rammatical, word or spelling errors. Chief Complaint: 85-year-old female past medical history dementia presents with and home nurse for cough and congestion History of Present Illness: Patient is an 85-year-old female she has past medical history of dementia. She is neurologically at baseline. Patient unable to provide history of present illness due to history of dementia. and nurse R bedside. They report for the last 2 days patient is showing signs of respiratory infection including nonproductive cough, nasal congestion and shortness of breath. Family denies that patient had any fevers. No obvious sick contacts. Family reports the patient is neurologically at baseline. The ROS documented in this emergency department record has been reviewed and confirmed by me. Those systems with pertinent positive or negative responses have been documented in the HPI. All other systems are other negative and/or noncontributory. PHYSICAL EXAM: General Impression: Alert and oriented x1/4, not in acute distress HEENT: Normocephalic atraumatic, extra-ocular movements intact, pupils equal and reactive to light bilaterally, mucous membranes moist, rhinorrhea Cardiovascular: Heart regular rate and rhythm Chest: Mild end expiratory wheezing diffusely Abdomen: abdomen soft, non-tender, non-distended, no organomegaly Musculoskeletal: Pulses present and equal in all extremities, no peripheral edema Motor: no focal deficits noted Neurological: CN II-XII grossly intact, no focal motor or sensory deficits noted Skin: Intact with no visualized rashes Psych: Normal affect and mood ED course: 5-year-old female presents to the emergency department for symptoms of respiratory infection. Vital signs upon arrival are within acceptable limits. Patient is afebrile. She is not hypoxic and nontachypneic. CBC unremarkable. Metabolic panel is within acceptable limits. Mild dehydration. Rotavirus negative. Chest x-ray is nonacute. Patient reevaluated at bedside at 5:00 PM found to be in stable medical condition. She was observed in emergency department for approximately 3 hours. She is stable medical condition. Patient has a URI. Patient is stable for discharge. Advised follow-up with primary care doctor. No clinical indication for antibiotic administration at this time. - Related Data Home Medications Medication Instructions Recorded Confirmed Lisinopril [Prinivil] 10 mg PO DAILY 06/20/14 05/10/19 Warfarin [Coumadin] 2.5 mg PO MOTUWETHFRSA 06/20/14 05/10/19 Warfarin [Coumadin] 5 mg PO RAMIREZ 06/20/14 05/10/19 hydroCHLOROthiazide [Hydrodiuril] 25 mg PO DAILY 06/20/14 05/10/19 Diltiazem HCl [Diltiazem ER] 240 mg PO DAILY 09/30/17 05/10/19 Fluticasone/Vilanterol [Breo 1 puff INHALATION RT-DAILY 09/30/17 05/10/19 Ellipta 100-25 Mcg Inhaler] Multivitamins, Thera [Multivitamin 1 tab PO DAILY 09/30/17 05/10/19 (formulary)] Simvastatin [Zocor] 40 mg PO HS 09/30/17 05/10/19 Levothyroxine Sodium [Synthroid] 150 mcg PO DAILY 05/10/19 05/10/19 calcium polycarbophiL [Fibercon] 625 mg PO DAILY 05/10/19 05/10/19 Allergies Allergy/AdvReac Type Severity Reaction Status Date / Time atropine sulfate Allergy Rash/Hives Verified 08/30/21 14:22 [From Lomotil] diphenoxylate HCl Allergy Rash/Hives Verified 08/30/21 14:22 [From Lomotil] hydroxychloroquine sulfate Allergy Rash/Hives Verified 08/30/21 14:22 [From Plaquenil] Review of Systems ROS Statement: Those systems with pertinent positive or pertinent negative responses have been documented in the HPI. ROS Other: All systems not noted in ROS Statement are negative. Past Medical History Past Medical History: Asthma, Cancer, GERD/Reflux, Hypertension, Thyroid Disorder History of Any Multi-Drug Resistant Organisms: None Reported Past Surgical History: Bowel Resection, Breast Surgery Additional Past Surgical History / Comment(s): Breast CA,hemorrhoid surgery Past Anesthesia/Blood Transfusion Reactions: No Reported Reaction Past Psychological History: No Psychological Hx Reported Smoking Status: Never smoker Past Alcohol Use History: None Reported Past Drug Use History: None Reported General Exam Limitations: no limitations Course Vital Signs 08/30/21 08/30/21 14:23 16:15 Temperature 98 F Pulse Rate 99 88 Respiratory 18 18 Rate Blood Pressure 131/63 119/56 O2 Sat by Pulse 97 97 Oximetry Medical Decision Making - Lab Data Result diagrams: 08/30/21 16:04 08/30/21 16:04 Lab Results 08/30/21 08/30/21 08/30/21 Range/Units 15:07 16:04 16:04 WBC 6.9 (3.8-10.6) k/uL RBC 4.37 (3.80-5.40) m/uL Hgb 13.9 (11.4-16.0) gm/dL Hct 40.2 (34.0-46.0) % MCV 92.0 (80.0-100.0) fL MCH 31.9 (25.0-35.0) pg MCHC 34.7 (31.0-37.0) g/dL RDW 13.8 (11.5-15.5) % Plt Count 264 (150-450) k/uL MPV 8.4 Neutrophils % 71 % Lymphocytes % 16 % Monocytes % 7 % Eosinophils % 2 % Basophils % 1 % Neutrophils # 4.9 (1.3-7.7) k/uL Lymphocytes # 1.1 (1.0-4.8) k/uL Monocytes # 0.5 (0-1.0) k/uL Eosinophils # 0.2 (0-0.7) k/uL Basophils # 0.1 (0-0.2) k/uL Sodium 133 L (137-145) mmol/L Potassium 4.7 (3.5-5.1) mmol/L Chloride 102 (98-107) mmol/L Carbon Dioxide 20 L (22-30) mmol/L Anion Gap 11 mmol/L BUN 22 H (7-17) mg/dL Creatinine 0.85 (0.52-1.04) mg/dL Est GFR (CKD-EPI)AfAm 73 (>60 ml/min/1.73 sqM) Est GFR (CKD-EPI)NonAf 63 (>60 ml/min/1.73 sqM) Glucose 206 H (74-99) mg/dL Calcium 9.5 (8.4-10.2) mg/dL Coronavirus (PCR) Not Detected (Not Detectd) Disposition Clinical Impression: Common cold Disposition: HOME SELF-CARE Condition: Good Instructions (If sedation given, give patient instructions): Upper Respiratory Infection (ED) Is patient prescribed a controlled substance at d/c from ED?: No Referrals: Cyrus Joel MD [Primary Care Provider] - 1-2 days"
[2021-08-30 16:15] LABS: Basophils # (A) 0.1 k/uL (0-0.2); Basophils % (A) 1 %; Eosinophils # (A) 0.2 k/uL (0-0.7); Eosinophils % (A) 2 %; HCT 40.2 % (34.0-46.0); HGB 13.9 gm/dL (11.4-16.0); Lymphocytes # (A) 1.1 k/uL (1.0-4.8); Lymphocytes % (A) 16 %; MCH 31.9 pg (25.0-35.0); MCHC 34.7 g/dL (31.0-37.0); Mean Platelet Volume 8.4; Monocytes # (A) 0.5 k/uL (0-1.0); Monocytes % (A) 7 %; Neutrophils # (A) 4.9 k/uL (1.3-7.7); Neutrophils % (A) 71 %; Platelet Count 264 k/uL (150-450); RBC 4.37 m/uL (3.80-5.40); RDW 13.8 % (11.5-15.5); WBC 6.9 k/uL (3.8-10.6)
[2021-08-30 16:26] VITALS: BP 119/56; PULSE 88
[2021-08-30 16:38] LABS: Calcium 9.5 mg/dL (8.4-10.2); Potassium 4.7 mmol/L (3.5-5.1)
== END 2021-08-30 17:24 | disposition home or self-care (01) ==
LOC: EC 14:01
DX: J00 Acute nasopharyngitis [common cold] (principal); F03.90 Unspecified dementia, unspecified severity, without behavioral disturbance, psychotic disturbance, mood disturbance, and anxiety; J45.909 Unspecified asthma, uncomplicated; K21.9 Gastro-esophageal reflux disease without esophagitis; I10 Essential (primary) hypertension; E07.9 Disorder of thyroid, unspecified; Z79.01 Long term (current) use of anticoagulants; Z85.3 Personal history of malignant neoplasm of breast; Z20.822 Contact with and (suspected) exposure to COVID-19; Z87.19 Personal history of other diseases of the digestive system
CPT/HCPCS: 36415; 71046; 80048; 85025; 87635; 99285

== ENCOUNTER 2021-11-04 17:21 | Emergency (ER) | payer MEDICARE, OTHER ==
[2021-11-04 17:59] VITALS: TEMP 98.4
--- NOTE | 2021-11-04 18:25 | ED ---
General Adult HPI - General Chief complaint: Recheck/Abnormal Lab/Rx Stated complaint: Altered Mental Status Time Seen by Provider: 11/04/21 17:50 Source: family, EMS Mode of arrival: EMS Limitations: altered mental status - History of Present Illness Initial comments: Dictation was produced using [employer] dictation software. please excuse any gramma tical, word or spelling errors. Chief Complaint: Patient is an 86-year-old female past medical history of dementia, hypertension and asthma presents to the emergency department for episo de of unresponsiveness. History of Present Illness: Patient is an 86-year-old female she presents to the emergency department with son was at the bedside. Patient was allegedly at home when she had several minutes of being unresponsive. She had a mild care nurse that is not very familiar with the patient. On health care nurse called EMS patient is brought to the emergency room. Son reports that patient has had episodes like this in the past. She appears to be at baseline currently. Son does not feel that any workup needs to be performed given that patient has had episodes of this in the past and appears to be at baseline currently. To provide history present illness secondary to mental status that is baseline. Family member is a physician does not feel blood work or an extensive workup is necessary at this time. Had runny nose and perhaps a dry cough for the last week. Her is here in emergency department getting monoclonal antibodies. Patient is vaccinated and received a booster. Patient is alert and oriented 1 at baseline. The ROS documented in this emergency department record has been reviewed and confirmed by me. Those systems with pertinent positive or negative responses have been documented in the HPI. All other systems are other negative and/or noncontributory. PHYSICAL EXAM: General Impression: Alert and oriented x1, not in acute distress HEENT: Normocephalic atraumatic, extra-ocular movements intact, pupils equal and reactive to light bilaterally, mucous membranes moist. Cardiovascular: Heart regular rate and rhythm Chest: Able to complete full sentences, no retractions, no tachypnea Abdomen: abdomen soft, non-tender, non-distended, no organomegaly Musculoskeletal: Pulses present and equal in all extremities, no peripheral edema Motor: no focal deficits noted Neurological: CN II-XII grossly intact, no focal motor or sensory deficits noted Skin: Intact with no visualized rashes Psych: Normal affect and mood ED course: 86-year-old female presents to the emergency Department with episode of unresponsiveness. Signs upon arrival are within acceptable limits. Son at the bedside reports that patient appears baseline set had frequent episodes of this in the past. Son feels that blood work is not necessary at this time. He is agreeable to EKG and covid PCR test. Patient recently had a negative Covid test. Given that patient has be EKG is normal. blankn physical examination and son at the bedside is well familiar with the patient states that patient is normal and this is a normal occurrence believe that extensive workup not necessary at this time. Son reports that he will take patient home with him for close monitoring. - Related Data Home Medications Medication Instructions Recorded Confirmed Lisinopril [Prinivil] 10 mg PO DAILY 06/20/14 11/04/21 Levothyroxine Sodium [Synthroid] 150 mcg PO DAILY 05/10/19 11/04/21 Ascorbic Acid [Vitamin C] 500 mg PO DAILY 08/30/21 11/04/21 Aspirin EC [Ecotrin Low Dose] 81 mg PO DAILY 08/30/21 11/04/21 Atorvastatin Calcium [Lipitor] 10 mg PO HS 08/30/21 11/04/21 Cholecalciferol [Vitamin D3 (25 50 mcg PO DAILY 08/30/21 11/04/21 Mcg = 1000 Iu)] Cyanocobalamin (Vitamin B-12) 1,000 mcg PO DAILY 08/30/21 11/04/21 [Vitamin B-12] Fluticasone/Salmeterol [Advair 1 puff INHALATION RT-BID 08/30/21 11/04/21 500-50 Diskus] Psyllium Husk (with Sugar) 6 gm PO BID 08/30/21 11/04/21 [Metamucil Powder] Rivaroxaban [Xarelto] 20 mg PO DAILY 08/30/21 11/04/21 Collagenase [Santyl Ointment] 1 applic TOPICAL DAILY 11/04/21 11/04/21 sitaGLIPtin [Januvia] 50 mg PO DAILY 11/04/21 11/04/21 Allergies Allergy/AdvReac Type Severity Reaction Status Date / Time atropine sulfate Allergy Rash/Hives Verified 11/04/21 18:32 [From Lomotil] diphenoxylate HCl Allergy Rash/Hives Verified 11/04/21 18:32 [From Lomotil] hydroxychloroquine sulfate Allergy Rash/Hives Verified 11/04/21 18:32 [From Plaquenil] Review of Systems ROS Statement: Those systems with pertinent positive or pertinent negative responses have been documented in the HPI. ROS Other: All systems not noted in ROS Statement are negative. Past Medical History Past Medical History: Asthma, Cancer, GERD/Reflux, Hypertension, Thyroid Disorder History of Any Multi-Drug Resistant Organisms: None Reported Past Surgical History: Bowel Resection, Breast Surgery Additional Past Surgical History / Comment(s): Breast CA,hemorrhoid surgery Past Anesthesia/Blood Transfusion Reactions: No Reported Reaction Past Psychological History: No Psychological Hx Reported Smoking Status: Never smoker Past Alcohol Use History: None Reported Past Drug Use History: None Reported General Exam Limitations: altered mental status Course Vital Signs 11/04/21 17:48 Temperature 98.4 F Pulse Rate 88 Respiratory 20 Rate Blood Pressure 112/54 O2 Sat by Pulse 100 Oximetry Disposition Clinical Impression: Wellness examination Disposition: HOME SELF-CARE Condition: Fair Is patient prescribed a controlled substance at d/c from ED?: No Referrals: Marcellus Joel DO [Primary Care Provider] - 1-2 days
[2021-11-04 20:02] VITALS: BP 101/63; PULSE 84; RESP 18
== END 2021-11-04 20:01 | disposition home or self-care (01) ==
LOC: SUPCPDRO 17:21 → EC 17:21
DX: R41.82 Altered mental status, unspecified (principal); I10 Essential (primary) hypertension; E07.9 Disorder of thyroid, unspecified; J45.909 Unspecified asthma, uncomplicated; Z79.890 Hormone replacement therapy; Z79.82 Long term (current) use of aspirin; Z79.899 Other long term (current) drug therapy; Z88.8 Allergy status to other drugs, medicaments and biological substances; Z79.51 Long term (current) use of inhaled steroids
CPT/HCPCS: 93005; 99285

== ENCOUNTER 2024-07-11 11:41 | Day surgery (SDC) | payer MEDICARE, OTHER ==
[2024-07-02 12:41] VITALS: BMI 19.0
[~2024-07-11 11:41] MED LIST: HYDROmorphone 0.5 MG/0.5 ML SYRINGE IVP PRN
[2024-07-11] MEDS: IV FLUID CONTINUATION 1,000 ML IV ONE (12:08)
[2024-07-11 12:28] LABS: Glucose,Whole Blood 141 mg/dL (70-110)
[2024-07-11] MEDS: ONDANSETRON 4 MG/2 ML VIAL IVP ONE (12:41)
[2024-07-11] MEDS: DEXAMETHASONE SOD PHOSPHATE 4 MG/ML 1 ML VIAL IV ONE (12:42)
[2024-07-11] MEDS: IPRATROPIUM-ALBUTEROL 3 ML NEB INHALATION STA (12:43)
[2024-07-11] MEDS: FAMOTIDINE 20 MG/2 ML VIAL IV PRN (12:43)
[2024-07-11] MEDS: LACTATED RINGERS 1,000 ML IV SCH (12:44)
[2024-07-11] MEDS ORDERED: LIDOCAINE 1% INJ 10MG/ML (20 ML MDV) ONE (12:58)
[2024-07-11] MEDS ORDERED: PROPOFOL 10 MG/ML 20 ML VIAL IV ONE (12:58)
[2024-07-11] MEDS ORDERED: fentaNYL (PF) 50 MCG/ML 2 ML AMP ONE (12:58)
[2024-07-11] MEDS ORDERED: PHENYLEPHRINE-0.9% NACL SYG 1,000 MCG/10 ML SYRINGE ONE (12:58)
[2024-07-11 13:14] LABS: African American GFR (CKD) >90 (>60 ml/min/1.73 sqM); Anion Gap 7 mmol/L; Blood Urea Nitrogen 30 mg/dL (7-17); Calcium 9.6 mg/dL (8.4-10.2); Carbon Dioxide 24 mmol/L (22-30); Chloride 107 mmol/L (98-107); Glucose 145 mg/dL (74-99); Non-African American GFR(CKD) 84 (>60 ml/min/1.73 sqM); Potassium 4.5 mmol/L (3.5-5.1); Sodium 138 mmol/L (137-145)
[2024-07-11] MEDS: LIDOCAINE 1%-EPI 1:100,000 20 ML VIAL SQ ONE (13:22)
[2024-07-11] MEDS: BACITRACIN ZINC 500 UNIT/GM OINT 28.4 GM TUBE TOPICAL ONE (13:50)
--- NOTE | 2024-07-11 13:59 | P.OP ---
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 Patient underwent induction of general anesthesia with oral endotracheal intubation without difficulty. The patient was prepped and draped in usual aseptic fashion. The right cheek skin lesion was excised grossly entirely down to the subcutaneous fat layer with additional grossly negative margins. The edges of the wound undermined. A local flap was needed to rotate tissue from anteriorly and inferiorly into the defect with a rhomboid flap and was then sutured into position with inverted interrupted 5-0 Vicryl suture and skin closed with running locking and simple interrupted 5-0 Prolene suture. Bacitracin ointment and sterile dressing was placed. The right advent skin lesion was then excised grossly entirely again with negative gross margins of at least 3 mm. This was excised in the subcu fat layer and the edges are undermined. This also required local flap reconstruction to avoid distortion of the surrounding tissues and therefore a rhomboid flap based inferiorly and therefore rotated from anterior into the defect was performed and sutured in place after good hemostasis was noted with inverted interrupted 5-0 Vicryl suture skin closed with running locking and simple interrupted 5-0 Prolene suture. Bacitracin ointment and sterile dressings were placed. Frozen section was deferred on both sites as this was not readily available today. The patient was allowed to emerge from general anesthesia having tolerated procedure well was extubated in the operating suite and transferred to the postop recovery area in satisfactory condition.
[2024-07-11 14:02] VITALS: TEMP 97
[2024-07-11 14:40] VITALS: RESP 20
[2024-07-11 15:11] VITALS: BP 138/83; PULSE 94
[2024-07-12 08:33] LABS: Glucose,Whole Blood 193 mg/dL (70-110)
== END 2024-07-11 15:31 | disposition home or self-care (01) ==
LOC: OR 11:41
PROVIDERS: ATTEND Otolaryngology
CPT/HCPCS: 80048; 88305

== ENCOUNTER 2024-10-26 12:06 | Emergency (ER) | payer MEDICARE, OTHER ==
[2024-10-26 12:15] VITALS: TEMP 97.5
[2024-10-26] MEDS ORDERED: RX INFO: IV CONTRAST WAS GIVEN 1 EACH MISC MISCELLANE PRN (12:31)
--- NOTE | 2024-10-26 12:57 | ED ---
General Adult HPI - General Chief complaint: Recheck/Abnormal Lab/Rx Stated complaint: Swelling/Bruising L arm/chest Time Seen by Provider: 10/26/24 12:09 Source: EMS, RN notes reviewed Mode of arrival: EMS Limitations: altered mental status, physical limitation - History of Present Illness Initial comments: This is an 89-year-old female who presents to the emergency department for a hematoma on her chest wall. Patient is nonverbal and presents with and caregiver. Caregiver states that a couple of weeks ago she had a bruise near her left armpit. This had started to heal and was doing well, however this morning when she woke up, the bruise had become very large and began to extend down to the arm and across the chest. Within a couple of hours this then doubled to a large softball size hematoma. She has not had any injuries and she is not taking any blood thinners. She does appear to exhibit discomfort from this and they did try to give her Tylenol. This is never happened to the patient in the past. - Related Data Home Medications Medication Instructions Recorded Confirmed Levothyroxine Sodium [Synthroid] 150 mcg PO DAILY 05/10/19 10/26/24 Ascorbic Acid [Vitamin C] 500 mg PO DAILY 08/30/21 10/26/24 Atorvastatin Calcium [Lipitor] 20 mg PO HS 08/30/21 10/26/24 Albuterol Nebulized [Ventolin 2.5 mg INHALATION RT-BID 07/02/24 10/26/24 Nebulized] Psyllium Husk (with Sugar) 1 tbsp PO BID 07/02/24 10/26/24 [Metamucil Powder] sitaGLIPtin [Januvia] 100 mg PO DAILY 07/02/24 10/26/24 Cholecalciferol (Vitamin D3) 50 mcg PO DAILY 10/26/24 10/26/24 [Vitamin D3 (50 Mcg = 2000 Iu) Chew Tab] Docusate [Colace] 100 mg PO DAILY PRN 10/26/24 10/26/24 Glimepiride 1.5 mg PO DAILY 10/26/24 10/26/24 Levofloxacin [Levaquin] 500 mg PO DAILY 10/26/24 10/26/24 Vitamin B-12 Chewable(Unknown Dose) 1 tab PO DAILY 10/26/24 10/26/24 Allergies Allergy/AdvReac Type Severity Reaction Status Date / Time atropine AdvReac Unknown Verified 10/26/24 14:56 diphenoxylate AdvReac Unknown Verified 10/26/24 14:56 hydroxychloroquine AdvReac Unknown Verified 10/26/24 14:56 Review of Systems ROS Statement: Those systems with pertinent positive or pertinent negative responses have been documented in the HPI. ROS Other: All systems not noted in ROS Statement are negative. Past Medical History Past Medical History: Asthma, Cancer, COPD, Diabetes Mellitus, Hypertension, Memory Impairment, Skin Disorder, Thyroid Disorder Additional Past Medical History / Comment(s): Breast & skin; Left ankle and Right big toe- open pressure sore being treated by Home Care- changes dressings; Alzheimer's disease nonverbal History of Any Multi-Drug Resistant Organisms: None Reported Past Surgical History: Breast Surgery Additional Past Surgical History / Comment(s): Breast CA,Prolasp rectum repair Past Anesthesia/Blood Transfusion Reactions: No Reported Reaction Past Psychological History: No Psychological Hx Reported Smoking Status: Former smoker General Exam Limitations: altered mental status, physical limitation General appearance: alert, in no apparent distress Head exam: Present: atraumatic, normocephalic, normal inspection Respiratory exam: Present: normal lung sounds bilaterally. Absent: respiratory distress, wheezes, rales, rhonchi, stridor Cardiovascular Exam: Present: regular rate, normal rhythm Neurological exam: Present: alert Skin exam: Present: other (Large firm hematoma to the left chest wall with ecchymosis extending down the arm and across the chest.) Course Vital Signs 10/26/24 10/26/24 12:08 17:48 Temperature 97.5 F L Pulse Rate 92 98 Respiratory 16 18 Rate Blood Pressure 103/77 108/68 O2 Sat by Pulse 93 L 94 L Oximetry Medical Decision Making - Medical Decision Making This is an 89-year-old female who presents to the emergency department for a hematoma to her chest wall. Was pt. sent in by a medical professional or institution? @ -No Did you speak to anyone other than the patient for history? @ -Caregiver provided all of the history. Did you review nursing and triage notes? @ -Yes, and I agree, it is accurate with regards to the patient's symptoms. Were old charts reviewed? @ -No Differential Diagnosis? @ -Hematoma, abscess, tumor, this is not meant to be an all-inclusive list. EKG interpreted by me (3pts min.)? @ -EKG interpreted by me demonstrating the following: Sinus rhythm. Ventricular rate 98 bpm, HI interval 192 ms, QRS duration 68 ms, QTc 406 ms. X-rays interpreted by me (1pt min.)? @ -Not obtained CT interpreted by me (1pt min.)? @ -CT scan of the chest obtained. My interpretation identifies a large chest wall hematoma. U/S interpreted by me (1pt. min.)? @ -Not obtained What testing was considered but not performed? (CT, X-rays, U/S, labs)? Why? @ -None What meds were considered but not given? Why? @ -None Did you discuss the management of the patient with other professionals? @ -Yes, Dr. Salmon, vascular surgery, who advised transfer to a facility with IR available. Dr. Tate, ED attending, accepts the patient for transfer to [facility]. Did you reconcile home meds? @ -No Was smoking cessation discussed for >3mins.? @ -No Was critical care preformed (if so, how long)? @ -No Were there social determinants of health that impacted care today? How? (Homelessness, low income, unemployed, alcoholism, drug addiction, transportation, low edu. Level, literacy, decrease access to med. care, fci, rehab)? @ -No Was there de-escalation of care discussed even if they declined? (Discuss DNR or withdrawal of care, Hospice)? @ -No What co-morbidities impacted this encounter? (DM, HTN, Smoking, COPD, CAD, Cancer, CVA, Hep., AIDS, mental health diagnosis, sleep apnea, morbid obesity)? @ -Dementia, DM Was patient admitted / discharged? @ -Transferred. Lab work demonstrates leukocytosis with a white blood cell count of 12.3. Hemoglobin 10.5. Lactic acid also elevated at 2.8. CT scan of the chest obtained revealing a 10 cm large left wall hematoma with with a hyperdense focus suspicious for active extravasation. Case discussed with vascular/general surgery who advised transfer to a facility with IR available. Case discussed with [facility], who accepts patient for ED to ED transfer. Moise bandage was applied over the hematoma prior to transfer. Case discussed wi ED attending Dr. Perez. Dr. Tate is the accepting ED provider at [facility]. Undiagnosed new problem with uncertain prognosis? @ -None Drug Therapy requiring intensive monitoring for toxicity (Heparin, Nitro, Insulin, Cardizem)? @ -None Were any procedures done? @ -None Diagnosis/symptom? @ -Chest wall hematoma with active extravasation Acute, or Chronic, or Acute on Chronic? @ -Acute Uncomplicated (without systemic symptoms) or Complicated (systemic symptoms)? @ -Uncomplicated Side effects of treatment? @ -None Exacerbation, Progression, or Severe Exacerbation] @ -Not applicable Poses a threat to life or bodily function? @ -Yes, further blood loss can be life-threatening - Lab Data Result diagrams: 10/26/24 12:44 10/26/24 13:45 Lab Results 10/26/24 10/26/24 10/26/24 Range/Units 12:44 12:44 12:44 WBC 12.3 H (3.8-10.6) k/uL RBC 3.48 L (3.80-5.40) m/uL Hgb 10.5 L (11.4-16.0) gm/dL Hct 32.0 L (34.0-46.0) % MCV 91.8 (80.0-100.0) fL MCH 30.1 (25.0-35.0) pg MCHC 32.8 (31.0-37.0) g/dL RDW 16.1 H (11.5-15.5) % Plt Count 202 (150-450) k/uL MPV 8.7 Neutrophils % 89 % Lymphocytes % 5 % Monocytes % 4 % Eosinophils % 0 % Basophils % 0 % Neutrophils # 11.0 H (1.3-7.7) k/uL Lymphocytes # 0.7 L (1.0-4.8) k/uL Monocytes # 0.5 (0-1.0) k/uL Eosinophils # 0.1 (0-0.7) k/uL Basophils # 0.1 (0-0.2) k/uL Anisocytosis Slight PT 11.0 (10.0-12.5) sec INR 1.0 (<1.2) APTT 24.4 (22.0-30.0) sec Sodium (137-145) mmol/L Potassium (3.5-5.1) mmol/L Chloride (98-107) mmol/L Carbon Dioxide (22-30) mmol/L Anion Gap mmol/L BUN (7-17) mg/dL Creatinine (0.52-1.04) mg/dL Est GFR (CKD-EPI)AfAm (>60 ml/min/1.73 sqM) Est GFR (CKD-EPI)NonAf (>60 ml/min/1.73 sqM) Glucose (74-99) mg/dL Lactic Ac Sepsis Rflx Plasma Lactic Acid Farooq 2.8 H* (0.7-2.0) mmol/L Calcium (8.4-10.2) mg/dL Total Bilirubin (0.2-1.3) mg/dL AST (14-36) U/L ALT (4-34) U/L Alkaline Phosphatase (38-126) U/L Total Protein (6.3-8.2) g/dL Albumin (3.5-5.0) g/dL 10/26/24 10/26/24 Range/Units 13:45 13:50 WBC (3.8-10.6) k/uL RBC (3.80-5.40) m/uL Hgb (11.4-16.0) gm/dL Hct (34.0-46.0) % MCV (80.0-100.0) fL MCH (25.0-35.0) pg MCHC (31.0-37.0) g/dL RDW (11.5-15.5) % Plt Count (150-450) k/uL MPV Neutrophils % % Lymphocytes % % Monocytes % % Eosinophils % % Basophils % % Neutrophils # (1.3-7.7) k/uL Lymphocytes # (1.0-4.8) k/uL Monocytes # (0-1.0) k/uL Eosinophils # (0-0.7) k/uL Basophils # (0-0.2) k/uL Anisocytosis PT (10.0-12.5) sec INR (<1.2) APTT (22.0-30.0) sec Sodium 139 (137-145) mmol/L Potassium 4.7 (3.5-5.1) mmol/L Chloride 107 (98-107) mmol/L Carbon Dioxide 21 L (22-30) mmol/L Anion Gap 11 mmol/L BUN 41 H (7-17) mg/dL Creatinine 0.61 (0.52-1.04) mg/dL Est GFR (CKD-EPI)AfAm >90 (>60 ml/min/1.73 sqM) Est GFR (CKD-EPI)NonAf 81 (>60 ml/min/1.73 sqM) Glucose 284 H (74-99) mg/dL Lactic Ac Sepsis Rflx Y Plasma Lactic Acid Farooq (0.7-2.0) mmol/L Calcium 9.1 (8.4-10.2) mg/dL Total Bilirubin 0.5 (0.2-1.3) mg/dL AST 24 (14-36) U/L ALT 15 (4-34) U/L Alkaline Phosphatase 88 (38-126) U/L Total Protein 6.6 (6.3-8.2) g/dL Albumin 3.7 (3.5-5.0) g/dL - Radiology Data Radiology results: report reviewed, image reviewed Disposition Clinical Impression: Chest wall hematoma, Extravasation of blood Disposition: OTHER INSTITUTION NOT DEFINED Condition: Fair Referrals: Lew Broussard MD [REFERRING] - 1-2 days - Out of Hospital Transfer - Req. Specs Out of Hospital Transfer - Requested Specifics: Other Emergency Center ([facility])
[2024-10-26 13:13] LABS: Anisocytosis Slight; Basophils # (A) 0.1 k/uL (0-0.2); Basophils % (A) 0 %; Eosinophils # (A) 0.1 k/uL (0-0.7); Eosinophils % (A) 0 %; HGB 10.5 gm/dL (11.4-16.0); Lymphocytes # (A) 0.7 k/uL (1.0-4.8); Lymphocytes % (A) 5 %; MCH 30.1 pg (25.0-35.0); MCHC 32.8 g/dL (31.0-37.0); MCV 91.8 fL (80.0-100.0); Mean Platelet Volume 8.7; Monocytes # (A) 0.5 k/uL (0-1.0); Monocytes % (A) 4 %; Neutrophils % (A) 89 %; Platelet Count 202 k/uL (150-450); RBC 3.48 m/uL (3.80-5.40); RDW 16.1 % (11.5-15.5); WBC 12.3 k/uL (3.8-10.6)
[2024-10-26 13:25] LABS: Partial Thromboplastin Time 24.4 sec (22.0-30.0)
[2024-10-26 14:06] LABS: ALT 15 U/L (4-34); AST 24 U/L (14-36); African American GFR (CKD) >90 (>60 ml/min/1.73 sqM); Albumin 3.7 g/dL (3.5-5.0); Alkaline Phosphatase 88 U/L (38-126); Anion Gap 11 mmol/L; Blood Urea Nitrogen 41 mg/dL (7-17); Calcium 9.1 mg/dL (8.4-10.2); Carbon Dioxide 21 mmol/L (22-30); Chloride 107 mmol/L (98-107); Glucose 284 mg/dL (74-99); Non-African American GFR(CKD) 81 (>60 ml/min/1.73 sqM); Potassium 4.7 mmol/L (3.5-5.1); Sodium 139 mmol/L (137-145); Total Bilirubin 0.5 mg/dL (0.2-1.3); Total Protein 6.6 g/dL (6.3-8.2)
[2024-10-26] MEDS: SODIUM CHLORIDE 0.9% 500 ML 500 ML IV STA (14:11)
--- NOTE | 2024-10-26 14:49 | CT ---
EXAMINATION TYPE: CT chest w con CT DLP: 211.4 mGycm, Automated exposure control for dose reduction was used. DATE OF EXAM: 10/26/2024 2:32 PM COMPARISON: Chest radiograph from same day. Thoracic spine radiograph 09/30/2017. CLINICAL INDICATION:Female, 89 years old with history of Left chest wall hematoma; PHH, bruising on c hest TECHNIQUE: Multiple axial images were obtained through the chest following the administration of 100 cc of Isovue 300. . Coronal and sagittal reformats reviewed. FINDINGS: LUNGS/ PLEURA: No pleural effusion or pneumothorax. Bilateral lower lobe minimal subsegmental atelect asis. Peripheral superior segment right lower lobe 3 mm pulmonary nodule (series 205, image 21). AIRWAY: Patent and unremarkable.. HEART: Size within normal limits.No pericardial effusion. MEDIASTINUM: No gross evidence of adenopathy. VASCULATURE: No aortic aneurysm. Atherosclerotic calcification of the aorta and its branches. MUSCULOSKELETAL: No acute osseous abnormalities. Diffuse bone demineralization. Remote compression fr acture of the T12 vertebral body redemonstrated. Multilevel degenerative changes of the visualized sp ine. SOFT TISSUES/LYMPH NODES: Dystrophic calcification within the left breast. Large left chest wall nidhi liyah partially visualized measuring at least 10.0 x 4.5 x 7.8 cm (series 201, image 28). There is a h yperdense focus within this region measured 1.3 cm more medially (series 201, image 27). Postsurgical changes to the left breast along its posterior lateral aspect. LOWER NECK: No significant findings. UPPER ABDOMEN: Left renal cyst measuring up to 2.1 cm. Small to moderate-sized hiatal hernia. IMPRESSION: 1. Large left chest wall hematoma with hyperdense focus suspicious for active extravasation. 2. Right lower lobe 3 mm pulmonary nodule. In a low risk patient, no follow-up is recommended. In a h igh-risk patient, consider optional CT chest in 12 months. 3. Small to moderate-sized hiatal hernia. Findings called to and discussed with ESCOBAR Perez at 2:47 PM on 10/26/2024. [facility], , 10/26/2024 2:47 PM
[2024-10-26 17:50] VITALS: BP 108/68; PULSE 98; RESP 18
== END 2024-10-26 17:50 | disposition other institution (70) ==
LOC: EC 12:06
DX: S20.212A Contusion of left front wall of thorax, initial encounter (principal); T80.1XXA Vascular complications following infusion, transfusion and therapeutic injection, initial encounter; E11.9 Type 2 diabetes mellitus without complications; F02.80 Dementia in other diseases classified elsewhere, unspecified severity, without behavioral disturbance, psychotic disturbance, mood disturbance, and anxiety; Z87.891 Personal history of nicotine dependence; Z88.8 Allergy status to other drugs, medicaments and biological substances; X58.XXXA Exposure to other specified factors, initial encounter
CPT/HCPCS: 36415; 93005; 80053; 83605; 85025; 85610; 85730; 71260; 99285; 96360; Q9967

== ENCOUNTER 2025-02-18 14:12 | Emergency (ER) | payer MEDICARE, OTHER ==
[2025-02-18 14:18] VITALS: RESP 18
--- NOTE | 2025-02-18 14:58 | ED ---
Skin/Abscess/FB HPI - General Chief complaint: Skin/Abscess/Foreign Body Stated complaint: R foot issue Time Seen by Provider: 02/18/25 14:20 Source: patient, family, RN notes reviewed Mode of arrival: ambulatory Limitations: no limitations - History of Present Illness Initial comments: This is an 89-year-old female who presents to the emergency department for an infection to her right foot. Family states that she has been dealing with an infection under the right great toe for many years, however it started to get worse over the last several days. She has been following up with wound care and they did blood cultures revealing several organisms. She had been on levofloxacin, and finished this about a week ago, but had no improvement when she was on it. This is also increasingly uncomfortable for her. She was advised by wound care to come in for evaluation due to concern of worsening infection. - Related Data Home Medications Medication Instructions Recorded Confirmed Levothyroxine Sodium [Synthroid] 150 mcg PO DAILY 05/10/19 10/26/24 Ascorbic Acid [Vitamin C] 500 mg PO DAILY 08/30/21 10/26/24 Atorvastatin Calcium [Lipitor] 20 mg PO HS 08/30/21 10/26/24 Albuterol Nebulized [Ventolin 2.5 mg INHALATION RT-BID 07/02/24 10/26/24 Nebulized] Psyllium Husk (with Sugar) 1 tbsp PO BID 07/02/24 10/26/24 [Metamucil Powder] sitaGLIPtin [Januvia] 100 mg PO DAILY 07/02/24 10/26/24 Cholecalciferol (Vitamin D3) 50 mcg PO DAILY 10/26/24 10/26/24 [Vitamin D3 (50 Mcg = 2000 Iu) Chew Tab] Docusate [Colace] 100 mg PO DAILY PRN 10/26/24 10/26/24 Glimepiride 1.5 mg PO DAILY 10/26/24 10/26/24 Levofloxacin [Levaquin] 500 mg PO DAILY 10/26/24 10/26/24 Vitamin B-12 Chewable(Unknown Dose) 1 tab PO DAILY 10/26/24 10/26/24 Previous Rx's Medication Instructions Recorded Ciprofloxacin HCl 500 mg PO Q12H 10 Days #20 tab 02/18/25 Linezolid [Zyvox] 600 mg PO Q12H 10 Days #20 tab 02/18/25 Allergies Allergy/AdvReac Type Severity Reaction Status Date / Time atropine AdvReac Unknown Verified 02/18/25 14:18 diphenoxylate AdvReac Unknown Verified 02/18/25 14:18 hydroxychloroquine AdvReac Unknown Verified 02/18/25 14:18 Review of Systems ROS Statement: Those systems with pertinent positive or pertinent negative responses have been documented in the HPI. ROS Other: All systems not noted in ROS Statement are negative. Past Medical History Past Medical History: Asthma, Cancer, COPD, Diabetes Mellitus, Hypertension, Memory Impairment, Skin Disorder, Thyroid Disorder Additional Past Medical History / Comment(s): Breast & skin; Left ankle and Right big toe- open pressure sore being treated by Home Care- changes dressings; Alzheimer's disease nonverbal History of Any Multi-Drug Resistant Organisms: None Reported Past Surgical History: Breast Surgery Additional Past Surgical History / Comment(s): Breast CA,Prolasp rectum repair Past Anesthesia/Blood Transfusion Reactions: No Reported Reaction Past Psychological History: No Psychological Hx Reported Smoking Status: Former smoker Past Alcohol Use History: None Reported Past Drug Use History: None Reported General Exam Limitations: no limitations General appearance: alert, in no apparent distress Head exam: Present: atraumatic, normocephalic, normal inspection Respiratory exam: Present: normal lung sounds bilaterally. Absent: respiratory distress, wheezes, rales, rhonchi, stridor Cardiovascular Exam: Present: regular rate, normal rhythm Extremities exam: Present: other (Ulceration to the plantar aspect of the right foot inferior to the great toe) Neurological exam: Present: alert, oriented X3, CN II-XII intact Psychiatric exam: Present: normal affect, normal mood Course Vital Signs 02/18/25 14:14 Temperature 97.1 F L Pulse Rate 94 Respiratory 18 Rate Blood Pressure 143/75 O2 Sat by Pulse 95 Oximetry Medical Decision Making - Medical Decision Making This is an 89-year-old female who presents to the emergency department for a wound to the right foot. Was pt. sent in by a medical professional or institution? @ -No Did you speak to anyone other than the patient for history? @ -Family provided all of the history. Did you review nursing and triage notes? @ -Yes, and I agree, it is accurate with regards to the patient's symptoms. Were old charts reviewed? @ -Wound culture from 02/11/25 E. faecalis E. coli Staph aureus Resistance: Bactrim, beta lactam, macrolid, clindamycin, methicillin Effective: Omadacycline, Delafloxacin, Cipro + Linezolid, Zosyn + Vanco Differential Diagnosis? @ -Cellulitis, abscess, osteomyelitis, ulcer, this is not meant to be an all- inclusive list. EKG interpreted by me (3pts min.)? @ -Not obtained X-rays interpreted by me (1pt min.)? @ -X-ray of the right foot obtained. My interpretation identifies no osseous erosion. CT interpreted by me (1pt min.)? @ -Not obtained U/S interpreted by me (1pt. min.)? @ -Not obtained What testing was considered but not performed? (CT, X-rays, U/S, labs)? Why? @ -None What meds were considered but not given? Why? @ -None Did you discuss the management of the patient with other professionals? @ -No Did you reconcile home meds? @ -No Was smoking cessation discussed for >3mins.? @ -No Was critical care preformed (if so, how long)? @ -No Were there social determinants of health that impacted care today? How? (Homelessness, low income, unemployed, alcoholism, drug addiction, tra nsportation, low edu. Level, literacy, decrease access to med. care, penitentiary, rehab)? @ -No Was there de-escalation of care discussed even if they declined? (Discuss DNR or withdrawal of care, Hospice)? @ -No What co-morbidities impacted this encounter? (DM, HTN, Smoking, COPD, CAD, Cancer, CVA, Hep., AIDS, mental health diagnosis, sleep apnea, morbid obesity)? @ -DM Was patient admitted / discharged? @ -Discharged. Lab work demonstrates mild leukocytosis with a white blood cell count of 11.38. CRP mildly elevated at 1.3. X-ray of the right foot demonstrates no obvious fracture or osseous destruction. There is no radiographic evidence of osteomyelitis. Physical examination was relatively unremarkable as well. Patient's family had the results of the wound culture from 02/11/2025 which was positive for E faecalis, E. coli, and Staph aureus. They did provide several antibiotic options, including Omadacycline, delafloxacin, Cipro + Linezolid, Zosyn + Vanco. The first 2 antibiotics are not frequently prescribed or readily available. However, we discussed that ciprofloxacin and linezolid are both oral and would be a good starting point. Family is in agreement with this plan. 10-day course of ciprofloxacin and linezolid were prescribed. Advised that if these are not effective, she may ne ed to return for vancomycin and Zosyn. However, she does also already have follow-up with wound care and ID. Patient discharged home with family in stable condition. Case discussed with ED attending Dr. Zheng. Return precautions reviewed in depth, the patient is instructed to return to the emergency department with any new, worsening, or concerning symptoms. Patient's family verbalized understanding. Undiagnosed new problem with uncertain prognosis? @ -None Drug Therapy requiring intensive monitoring for toxicity (Heparin, Nitro, Insulin, Cardizem)? @ -None Were any procedures done? @ -None Diagnosis/symptom? @ -Right foot wound/infection Acute, or Chronic, or Acute on Chronic? @ -Chronic Uncomplicated (without systemic symptoms) or Complicated (systemic symptoms)? @ -Uncomplicated Side effects of treatment? @ -None Exacerbation, Progression, or Severe Exacerbation] @ -Progression Poses a threat to life or bodily function? @ -Unlikely - Lab Data Result diagrams: 02/18/25 15:09 02/18/25 15:09 Lab Results 02/18/25 02/18/25 02/18/25 Range/Units 15:09 15:09 15:09 WBC 11.38 H (4.50-10.00) 10*3/uL RBC 4.53 (4.10-5.20) 10*6/uL Hgb 13.0 (12.0-15.0) g/dL Hct 38.3 (37.2-46.3) % MCV 84.5 (80.0-97.0) fL MCH 28.7 (27.0-32.0) pg MCHC 33.9 (32.0-37.0) g/dL Plt Count 230 (140-440) 10*3/uL MPV 10.9 (9.5-12.2) fL Immature Gran % (Auto) 0.4 % Neutrophils % 72.3 % Lymphocytes % 16.9 % Monocytes % 5.7 % Eosinophils % 3.6 % Basophils % 1.1 % Immature Gran # 0.04 (0.00-0.04) 10*3/uL Neutrophils # 8.24 H (1.80-7.70) 10*3/uL Lymphocytes # 1.92 (0.90-5.00) 10*3/uL Monocytes # 0.65 (0.20-1.00) 10*3/uL Eosinophils # 0.41 H (0.04-0.35) 10*3/uL Basophils # 0.12 H (0.00-0.10) 10*3/uL Sodium 138 (137-145) mmol/L Potassium 5.1 (3.5-5.1) mmol/L Chloride 102 (98-107) mmol/L Carbon Dioxide 25 (22-30) mmol/L Anion Gap 11 mmol/L BUN 43 H (7-17) mg/dL Creatinine 0.54 (0.52-1.04) mg/dL Est GFR (CKD-EPI)AfAm >90 (>60 ml/min/1.73 sqM) Est GFR (CKD-EPI)NonAf 84 (>60 ml/min/1.73 sqM) Glucose 156 H (74-99) mg/dL Plasma Lactic Acid Farooq 1.2 (0.7-2.0) mmol/L Calcium 9.7 (8.4-10.2) mg/dL Total Bilirubin 0.6 (0.2-1.3) mg/dL AST 31 (14-36) U/L ALT 17 (4-34) U/L Alkaline Phosphatase 90 (38-126) U/L C-Reactive Protein 1.3 H (<1.0) mg/dL Total Protein 7.7 (6.3-8.2) g/dL Albumin 4.0 (3.5-5.0) g/dL - Radiology Data Radiology results: report reviewed, image reviewed Disposition Clinical Impression: Right foot infection Disposition: HOME SELF-CARE Additional Instructions: Return to the emergency department with any new, worsening, or concerning symptoms. Take both antibiotics as prescribed for 10 days. Continue to follow- up with wound care. Prescriptions: Ciprofloxacin HCl 500 mg PO Q12H 10 Days #20 tab Linezolid [Zyvox] 600 mg PO Q12H 10 Days #20 tab Is patient prescribed a controlled substance at d/c from ED?: No Referrals: Serge Hagan MD [Primary Care Provider] - 1-2 days Time of Disposition: 16:23
--- NOTE | 2025-02-18 15:09 | XR ---
EXAMINATION TYPE: XR foot complete 3 views RT DATE OF EXAM: 02/18/2025 2:49 PM COMPARISON: None CLINICAL INDICATION: Female, 89 years old with history of Infection; PHH, pain FINDINGS: Marked osteopenia. Moderate generalized soft tissue swelling. No displaced fracture is seen. No discr ete lytic destruction. IMPRESSION: Limited due to the degree of severe osteopenia. No displaced fracture or discrete osseous destruction is identified. No convincing radiographic findings of osteomyelitis. [facility], Workstation: [email or web address], 02/18/2025 3:06 PM
[2025-02-18 15:21] LABS: Basophils # (A) 0.12 10*3/uL (0.00-0.10); Basophils % (A) 1.1 %; Eosinophils # (A) 0.41 10*3/uL (0.04-0.35); Eosinophils % (A) 3.6 %; HCT 38.3 % (37.2-46.3); Lymphocytes # (A) 1.92 10*3/uL (0.90-5.00); Lymphocytes % (A) 16.9 %; MCH 28.7 pg (27.0-32.0); MCHC 33.9 g/dL (32.0-37.0); MCV 84.5 fL (80.0-97.0); Mean Platelet Volume 10.9 fL (9.5-12.2); Monocytes # (A) 0.65 10*3/uL (0.20-1.00); Monocytes % (A) 5.7 %; Neutrophils # (A) 8.24 10*3/uL (1.80-7.70); Neutrophils % (A) 72.3 %; Platelet Count 230 10*3/uL (140-440); RBC 4.53 10*6/uL (4.10-5.20); RDW 17.5 % (11.5-14.5); WBC 11.38 10*3/uL (4.50-10.00)
[2025-02-18 15:34] LABS: ALT 17 U/L (4-34); African American GFR (CKD) >90 (>60 ml/min/1.73 sqM); Anion Gap 11 mmol/L; Blood Urea Nitrogen 43 mg/dL (7-17); C Reactive Protein 1.3 mg/dL (<1.0); Calcium 9.7 mg/dL (8.4-10.2); Carbon Dioxide 25 mmol/L (22-30); Chloride 102 mmol/L (98-107); Glucose 156 mg/dL (74-99); Non-African American GFR(CKD) 84 (>60 ml/min/1.73 sqM); Sodium 138 mmol/L (137-145); Total Bilirubin 0.6 mg/dL (0.2-1.3); Total Protein 7.7 g/dL (6.3-8.2)
[2025-02-18 15:37] LABS: AST 31 U/L (14-36); Potassium 5.1 mmol/L (3.5-5.1)
[2025-02-18 15:38] LABS: Alkaline Phosphatase 90 U/L (38-126)
[2025-02-18 16:48] VITALS: BP 140/87; PULSE 90; TEMP 97.9
[2025-02-18 21:39] LABS: Erythrocyte Sedimentation Rate 86 mm/Hr (0-30)
== END 2025-02-18 16:48 | disposition home or self-care (01) ==
LOC: EC 14:12
DX: L08.9 Local infection of the skin and subcutaneous tissue, unspecified (principal); E11.9 Type 2 diabetes mellitus without complications; Z88.8 Allergy status to other drugs, medicaments and biological substances
CPT/HCPCS: 36415; 80053; 83605; 85025; 85652; 86140; 87070; 87075; 87205; 99283